=== PATIENT | male | born 1980 | race Caucasian/White ===

== ENCOUNTER 2023-03-20 10:02 | Emergency (ER) | payer OTHER, SELFPAY ==
[2023-03-20 10:05] VITALS: BP 131/89; PULSE 1; RESP 20; TEMP 37.2; O2SAT 9; BMI 30.6
--- NOTE | 2023-03-20 10:58 | CRLHL7_ITS ---
For Patients: As a result of the Century Cures Act, medical imaging exams and procedure reports are released immediately into your electronic medical record. You may view this report before your referring provider. If you have questions, please contact your health care provider. INDICATION: FEVER, COUGH TECHNIQUE: Chest 2 views. COMPARISON: April 05, 2019 FINDINGS: Cardiovascular and mediastinum: Heart size and vasculature are normal in caliber and appearance. Lungs and pleural spaces: Consolidation at the left mid to lower lung field compatible pneumonia. No sign of pleural effusion. No pneumothorax. Bones and soft tissues: No significant findings. IMPRESSION: Consolidation at the left mid to lower lung field compatible pneumonia. Recommend follow-up radiographs in 4-6 weeks to document resolution. Dictated by Clint Zelaya MD @ 03/20/2023 11:23:08 AM (Electronically Signed)
--- NOTE | 2023-03-20 11:06 | ED.GENADULT ---
HPI - General Adult General Date Seen: 03/20/23 Chief complaint: Shortness of Breath/Dyspnea Stated complaint: cough,shortness of breath Time Seen by Provider: 03/20/23 10:37 History of Present Illness HPI narrative: This is a pleasant 42-year-old generally healthy male who presents to the ER today with his for evaluation of cough, fever and chills, body aches, and shortness of breath. He is generally healthy. 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 He does not smoke. No long-term medical conditions. No history of asthma. He did have pneumonia once when he was a child. He has been sick for 3 days. Symptoms began on Monday with body aches, fatigue, cough, nasal congestion, sore throat. Symptoms were worse following day on Monday with high fever, ongoing cough. He vomited once (nonbloody) on Monday. He has been fatigued. He has been achy. He has been feeling weak. He has been coughing. He has been struggling to keep up with hydration. No diarrhea. Symptoms persisted through Monday with fever, cough, fatigue, and mild shortness of breath. This morning he has more short of breath. He feels like there is a bear leading on his chest. He is coughing more. He is concerned he may have pneumonia. He is vaccinated against influenza and COVID. He got his booster is a couple weeks ago Related Data Previous Rx's Medication Instructions Recorded doxycycline hyclate 100 mg capsule 100 mg PO BID #10 caps 03/20/23 Allergies Allergy/AdvReac Type Severity Reaction Status Date / Time No Known Drug Allergies Allergy Verified 03/20/23 10:10 [facility] Medical History (Updated 03/20/23 @ 12:41 by Adam Hooks MD) Pneumonia ?J18.9 - Pneumonia, unspecified organism (ICD-10) GERD (gastroesophageal reflux disease) ?K21.9 - Gastro-esophageal reflux disease without esophagitis (ICD-10) Social History Smoking Status: Never smoker Do you use any of these nicotine containing products: None How often do you have a drink containing alcohol: never How often do you have six or more drinks on one occasion: Never AUDIT-C Alcohol total score: 0 Non-prescribed substance use: denies use Exam Narrative: Exam Narrative: Constitutional: Appears well-developed and well-nourished. Alert. Conversant but mildly tachypneic. Skin is pink and warm and well perfused. Non toxic. HENT: Head: Atraumatic. Nose: Nose normal. TMs normal. Mouth/Throat: Oral mucosa is clear and moist. no trismus. Pharynx minimally erythematous. Tonsils symmetric. No tonsillar enlargement, or exudate. Eyes: Conjunctivae normal. EOM normal. Pupils equal, round, and reactive to light. No scleral icterus. Neck: Normal range of motion. Neck supple. No tracheal deviation present. Cardiovascular: Tachycardia-around 100 or 110, regular rhythm. No gallop. No friction rub. No murmur heard. Symmetric radial artery pulses Pulmonary/Chest: Mildly increased work of breathing but no distress. Speaking full sentences l. No stridor. No respiratory distress. No wheezes. Bilateral coarse rales spread throughout the upper lung caro. No rhonchi . No tenderness. Abdominal: Soft. Bowel sounds normal. No distension. No mass. No tenderness. No rebound. No guarding. Musculoskeletal: RUE: Normal range of motion. No tenderness. No deformity LUE: Normal range of motion. No tenderness. No deformity RLE: Normal range of motion. No edema. No tenderness. No deformity LLE: Normal range of motion. No edema. No tenderness. No deformity Lymph: No cervical adenopathy. Neurological: Alert and oriented to person, place, and time. Normal strength. CN II-VII intact. No sensory deficit. GCS eye subscore is 4. GCS verbal subscore is 5. GCS motor subscore is 6. Normal coordination Skin: Skin is warm and dry. No rash noted. No pallor. Normal capillary refill. Psychiatric: Normal mood. Normal affect. Const: Vital Signs, click to edit/add: Vital Signs - 24 hr 03/20/23 10:05 03/20/23 12:00 03/20/23 13:00 Temperature 98.9 F Pulse Rate [Pulse Oximeter] 1 L 80 84 Respiratory Rate 20 18 20 Blood Pressure [Ri ght Upper Arm] 131/89 Pulse Oximetry 9 L 98 98 Oxygen Delivery Me thod Room Air Room Air Room Air 03/20/23 15:01 Temperature Pulse Rate [Pulse Oximeter] 88 Respiratory Rate 20 Blood Pressure [Ri ght Upper Arm] Pulse Oximetry 97 Oxygen Delivery Me thod Room Air Course Vital Signs Vital signs: Initial Vital Signs Respiratory Effort Normal, Short of Breath 03/20/23 10:03 Respiratory Depth Normal 03/20/23 10:03 Respiratory Pattern Normal 03/20/23 10:03 Vital Signs Temperature 98.9 F 03/20/23 10:05 Pulse Rate 1 L 03/20/23 10:05 Respiratory Rate 20 03/20/23 10:05 Blood Pressure 131/89 03/20/23 10:05 Pulse Oximetry 9 L 03/20/23 10:05 Oxygen Delivery Method Room Air 03/20/23 10:05 Temperature 98.9 F 03/20/23 10:05 Pulse Rate 88 03/20/23 15:01 Respiratory Rate 20 03/20/23 15:01 Blood Pressure 131/89 03/20/23 10:05 Pulse Oximetry 97 03/20/23 15:01 Oxygen Delivery Method Room Air 03/20/23 15:01 Medications Administered Medications: Discontinued Medications Generic Name Dose Route Start Last Admin Trade Name Freq PRN Reason Stop Dose Admin Acetaminophen 1,000 mg 03/20/23 12:07 03/20/23 12:11 Acetaminophen 500 Mg Tablet PO 03/20/23 12:08 1,000 mg ONCE ONE Administration Sodium Chloride 1,000 mls @ 1,000 mls/hr 03/20/23 11:15 03/20/23 12:54 0.9 % Sodium Chloride 1000 Ml IV 03/20/23 12:14 Infused .Q1H EVA Infusion Ceftriaxone Sodium 1 gm/ 100 mls @ 200 mls/hr 03/20/23 11:45 03/20/23 13:30 Sodium Chloride IVPB 03/20/23 11:46 Infused ONCE ONE Infusion Azithromycin 500 mg/ Sodium 255 mls @ 255 mls/hr 03/20/23 11:45 03/20/23 14:36 Chloride IVPB 03/20/23 11:46 Infused ONCE ONE Infusion Ondansetron HCl 4 mg 03/20/23 11:05 03/20/23 11:24 Ondansetron 2 Mg/Ml Inj IVP 03/20/23 11:06 4 mg ONCE ONE Administration Medical Decision Making MDM Narrative Medical decision making narrative: This patient presents for evaluation of cough, fever, shortness of breath, body aches, fatigue, and occasional bouts of emesis ongoing for the past 3 days.. This is consistent with an upper respiratory tract infection. Viral testing negative for influenza, RSV, and coronavirus.. There is no signs at this point of OM, RPA, epiglottitis, BUFFER INFLATED PAD, strep pharyngitis, sinusitis, meningitis, bacteremia, serious bacterial infection. With his shortness of breath this morning consider alternative causes. EKG is nonischemic. Troponin is negative. Patient did have scattered rales on his lung exam. Chest x-ray is obtained and does show evidence for a lingular and left lower lobe pneumonia. Started on IV antibiotics with Rocephin and Zithromax here in the ER. He did have 1 episode of vomiting here in the ER. After IV fluids his heart rate has come down from the 04/28 range to sore is normal. He passed ambulation trial here in the ER with oxygen sats in the high 90s. He is feeling better and is requesting discharge home. No signs of kidney failure, uncontrolled hyperglycemia, new onset diabetes. He did report some transient exertional hypoxia at home with sats down to 87 briefly. Here in the ER oxygen sats are normal. Ambulation trial revealed normal oxygen sats. Consider hospitalization for his pneumonia, however all, He is feeling much better and stronger firs discharge in outpatient management rather than hospitalization. Close followup with primary care physician is indicated. Return to ED for fever > 103, protracted vomiting, confusion, or other worsening. Lab Data Labs: Lab Results 03/20/23 03/20/23 Range/Units 11:17 Unknown WBC 7.09 (4.50-11.00) K/uL RBC 4.79 (4.30-5.90) m/uL Hgb 14.5 (13.5-17.5) gm/dL Hct 45.3 (37.0-53.0) % MCV 95 (80-100) fL MCH 30 (26-34) pg MCHC 32 (32-36) gm/dL RDW Coeff of Pratibha 12.1 (11.5-15.5) % Plt Count 213 (140-440) K/uL Neut % (Auto) 70.5 (42.0-72.0) % Lymph % (Auto) 17.8 L (20-44) % Rolette % (Auto) 10.7 (0.0-11.0) % Eos % (Auto) 0.6 (0.0-7.0) % Baso % (Auto) 0.3 (0.0-3.0) % Neut # (Auto) 5.00 (1.7-7.0) K/uL Lymph # (Auto) 1.30 (0.90-2.90) K/uL Rolette # (Auto) 0.80 (0.00-0.90) K/UL Eos # (Auto) 0.04 (0.00-0.50) K/uL Baso # (Auto) 0.02 (0.00-0.30) K/uL Abs Immat Gran (auto) 0.01 (0.00-0.30) K/uL Imm/Tot Granulo (auto) 0.1 % Sodium 142 (135-149) mmol/L Potassium 4.5 (3.6-5.1) mmol/L Chloride 104 (96-114) mmol/L Carbon Dioxide 26 (20-32) mmol/L Anion Gap 12 (7-15) mEq/L BUN 13 (5-24) mg/dL Creatinine 0.9 (0.5-1.5) mg/dL Estimated Creat Clear 108.15 Estimated GFR 108 ml/min Glucose 116 H (60-115) mg/dL Calcium 8.9 (8.4-10.6) mg/dL Troponin I < 0.01 L (0.01-0.04) ng/mL SARS-CoV-2 (PCR) Negative SARS-CoV-2 (Negative) Influenza Type A (PCR) Negative PCR FLU A (Negative) Influenza Type B (PCR) Negative PCR FLU B (Negative) RSV (PCR) Negative PCR RSV (Negative) Imaging Data Chest x-ray: Attestation: I have reviewed the pertinent imaging results. Radiologist's impression: IMPRESSION: Consolidation at the left mid to lower lung field compatible pneumonia. Recommend follow-up radiographs in 4-6 weeks to document resolution. ECG Data Attestation: I personally reviewed and interpreted this ECG as follows: Interpretation: Sinus tach. Rate 103. OK 154 QRS axis normal axis. No pathologic Q-waves. ST segment/T wave: No ST segment elevation or depression. QTc: 424 Discharge Plan Discharge Clinical Impression: Community acquired pneumonia Patient Disposition: Home, Self-Care Condition: Guarded Instructions: Community Acquired Pneumonia (DC) Additional Instructions: Please return to the ER right away if you have more trouble breathing, oxygen level below 90% which lasts more than 5 minutes, weakness, high fever, uncontrolled vomiting or dehydration, or if you have any concerns. You can return to work after your symptoms are improving and you have been free of fever for more than 24 hours. Prescriptions: New doxycycline hyclate 100 mg capsule 100 mg PO BID Qty: 10 0RF Follow Up/Referrals: Nicole Hodges MD [Primary Care Provider] - Stand Alone Forms: [employer] Info Instructions
[2023-03-20] MEDS: 0.9 % SODIUM CHLORIDE 1000 ml 1,000 ML IV (11:23)
[2023-03-20] MEDS: ONDANSETRON 2 MG/ML inj 4 MG IVP (11:24)
[2023-03-20 11:38] LABS: Basophils Absolute Auto 0.02 K/uL (0.00-0.30); Basophils Percent Auto 0.3 % (0.0-3.0); Eosinophils Absolute Auto 0.04 K/uL (0.00-0.50); Eosinophils Percent Auto 0.6 % (0.0-7.0); Hematocrit 45.3 % (37.0-53.0); Hemoglobin* 14.5 gm/dL (13.5-17.5); Immature Granulocytes Abs Auto 0.01 K/uL (0.00-0.30); Immature Granulocytes Pct Auto 0.1 %; Lymphocytes Percent Auto 17.8 % (20-44); Mean Corpuscular HGB Conc 32 gm/dL (32-36); Mean Corpuscular Hemoglobin 30 pg (26-34); Mean Corpuscular Volume 95 fL (80-100); Monocytes Percent Auto 10.7 % (0.0-11.0); Neutrophils Percent Auto 70.5 % (42.0-72.0); Platelet Count* 213 K/uL (140-440); RDW Coefficient of Variation % 12.1 % (11.5-15.5); Red Blood Count 4.79 m/uL (4.30-5.90); White Blood Count* 7.09 K/uL (4.50-11.00)
[2023-03-20 11:40] LABS: Slide Review Reflex No
[2023-03-20 11:50] LABS: Chloride* 104 mmol/L (96-114); Potassium* 4.5 mmol/L (3.6-5.1); Sodium* 142 mmol/L (135-149)
[2023-03-20 11:52] LABS: Creatinine* 0.9 mg/dL (0.5-1.5); Est. Creatinine Clearance* 108.15; Estimated Glomerular Filt Rate 108 ml/min
[2023-03-20 11:53] LABS: Anion Gap 12 mEq/L (7-15); Blood Urea Nitrogen* 13 mg/dL (5-24); Calcium* 8.9 mg/dL (8.4-10.6); Carbon Dioxide* 26 mmol/L (20-32); Glucose* 116 mg/dL (60-115)
[2023-03-20 12:00] VITALS: PULSE 80; RESP 18; O2SAT 98
[2023-03-20] MEDS: cefTRIAXone 1 GM in 0.9 % SODIUM CHLORIDE Mini-bag 100 ML IVPB (12:01)
[2023-03-20] MEDS: ACETAMINOPHEN 500 MG TABLET 1000 MG PO (12:11)
[2023-03-20 12:14] LABS: Troponin I* < 0.01 ng/mL (0.01-0.04)
[2023-03-20 12:17] LABS: PCR FLU A Negative PCR FLU A (Negative); PCR FLU B Negative PCR FLU B (Negative); PCR RSV Negative PCR RSV (Negative)
[2023-03-20 12:30] LABS: SARS PCR* Negative SARS-CoV-2 (Negative)
[2023-03-20 13:00] VITALS: PULSE 84; RESP 20; O2SAT 98
[2023-03-20] MEDS: AZITHROMYCIN 500 MG in 0.9 % SODIUM CHLORIDE 250 ml 250 ML 255 MG IVPB (13:28)
--- NOTE | 2023-03-20 14:38 | ED.NURSE ---
patient ambulated in the hallway and pulse ox 98% on room air.
[2023-03-20 15:01] VITALS: PULSE 88; RESP 20; O2SAT 97
== END 2023-03-20 14:59 | disposition home or self-care (01) ==
PROVIDERS: Emergency Provider Emergency Medicine; PCP Family Medicine
DX: J18.9 Pneumonia, unspecified organism (principal)
CPT/HCPCS: 36415; 71046; 80048; 84484; 85025; 87631; 93005; 96365; 96366; 96375; 99284; 99285; A9270; J0456; J0696; J2405; J7030; J7050

== ENCOUNTER 2023-12-29 12:08 | Outpatient (CLI) | payer OTHER, SELFPAY ==
--- OUTSIDE RECORDS SUMMARY | 2023-12-29 12:12 | XMS_ITS | Clinical Summary ---
Author Organization [facility] Address [address] [place] [address] Care Team Providers Care Inside Sales Lead Name Role Phone Elsewhere, Pcp Primary Care Provider Unavailabl e Source Comments Patient records contain information from all sites at [facility]. For routine questions regarding patient records, call [phone] during business hours, M-F 8:00 AM - 5:00 PM Central Time. Record requests for emergency care only can be directed to [phone] at any time.[facility] Allergies No known active allergies Medications Medication Sig Dispensed Refills Start Date End Date Status cinnamon bark 500 mg capsule Take 1 capsule by mouth 2 (two) times a day. 02/08/2017 Active multivitamin tablet Take 1 tablet by mouth daily. 02/08/2017 Active vitamins A,C,H-kfja-derpmq (PRESERVISION AREDS) 7,160 Units-113 mg-100 Units per tablet Take 1 tablet by mouth daily. 02/08/2017 Active calcium carbonate (OS-JORGE LUIS) 1,250 mg (500 mg calcium) tablet Take 1 tablet by mouth 2 (two) times a day. 02/08/2017 Active docosahexanoic acid/epa (FISH OIL ORAL) Take 1 capsule by mouth daily. 02/03/2015 Active Encounters Date Type Department Care Team Description 11/01/2023 Clinical Communication Section of Preventive, Transportation and Occupational Medicine in [place], [place] [address] [place] [address] Adam Montenegro M.D. from Last 3 Months Immunizations Name Administration Dates Next Due H1N1 All Forms 05/03/2009 HepA, Unspecified 03/27/2005,05/28/2004,04/30/19 05 HepB, Unspecified 03/24/2005,05/25/2004,04/24/19 05 Influenza Split 02/22/2015, 2,03/13/2010,2008,02/23/2008,03/25/2007,03/31/2006,1 05/28/2004,04/30/2004 Influenza, Unspecified 02/05/2021 MMR 04/30/2004,12/24/1979 MPSV4 10/02/2010,04/30/2004 OPV 11/23/1983, 1,04/24/1979,1978,1978 PPD Test 08/30/2017 SARS-COV-2 (COVID-19) - PFIZ ER (Discontinued)(12 years or older) 02/05/2021,05/08/2020,04/14/2020 Td Preservative Free (TENIVA C, DECAVAC) 04/30/2004 Tdap 03/13/2010 TyVi (inj) 10/02/2010 influenza LAIV (Nasal) (2 ye ars through 49 years) 02/17/2014,01/18/2011 influenza trivalent vaccine (6 months and older)(PF) 02/04/2013 Social History Tobacco Use Types Packs/Day Years Used Date Smoking Tobacco: Former Smokeless Tobacco: Former Chew Quit: 04/24/2009 Humiliation, Afraid, Rape, and Kick questionnair e Answer Date Recorded Within the last year, have y ou been afraid of your partner or ex-partner? No 01/28/2022 Within the last year, have y ou been humiliated or emotionally abused in other ways by your partner or ex-partner? No Within the last year, have y ou been kicked, hit, slapped, or otherwise physically hurt by your partner or ex-partner? No 01/28/2022 Within the last year, have y ou been raped or forced to have any kind of sexual activity by your partner or ex-partner? No 01/28/2022 Social Connection and Isolat ion Panel [NHANES] Answer Date Recorded In a typical week, how many times do you talk on the phone with family, friends, or neighbors? More than three times a week 01/28/2022 How often do you get togethe r with friends or relatives? Once a week 01/28/2022 How often do you attend chur ch or spiritism services? More than 4 times per year 01/28/2022 Do you belong to any clubs o r organizations such as latter-day groups, unions, fraternal or athletic groups, or school groups? Yes 01/28/2022 How often do you attend meet ings of the clubs or organizations you belong to? More than 4 times per year 01/28/2022 Are you , , di vorced, , never , or living with a partner? 01/28/2022 AUDIT-C Answer Date Recorded Q1: How often do you have a drink containing alc ohol? 2-4 times a month 01/28/2022 Q2: How many drinks containi ng alcohol do you have on a typical day when you are drinking? 3 or 4 01/28/2022 Q3: How often do you have si x or more drinks on one occasion? Less than monthly 01/28/2022 Overall Financial Resource Strain (CARDIA) Answe r Date Recorded How hard is it for you to pa y for the very basics like food, housing, medical care, and heating? Not hard at all 01/28/2022 [facility] - Occupational Stress Questionnaire Answer Date Recorded Do you feel stress - tense, restless, nervous, or anxious, or unable to sleep at night because your mind is troubled all the time - these days? Not at all 01/28/2022 Exercise Vital Sign Answer Date Recorde d On average, how many days pe r week do you engage in moderate to strenuous exercise (like a brisk walk)? 3 days 01/28/2022 On average, how many minutes do you engage in exercise at this level? 30 min 01/28/2022 Hunger Vital Sign Answer Date Recorded Within the past 12 months, y ou worried that your food would run out before you got the money to buy more. Never true 01/29/20 22 Within the past 12 months, t he food you bought just didn't last and you didn't have money to get more. Never true 01/28/2022 PRAPARE - Transportation Answer Date Re corded In the past 12 months, has l ack of transportation kept you from medical appointments or from getting medications? No 10/2021 In the past 12 months, has l ack of transportation kept you from meetings, work, or from getting things needed for daily living? No 01/28/2022 Housing Stability Vital Sign Answer Manny e Recorded In the last 12 months, was t here a time when you were not able to pay the mortgage or rent on time? No 01/28/2022 In the last 12 months, how many places have you lived? 1 01/28/2022 In the last 12 months, was t here a time when you did not have a steady place to sleep or slept in a custodial (including now)? No 01/28/2022 Nutrition Answer Date Recorded Nutrition: EVOO Fat Source No 01/28 On average, how many serving s of fruits and vegetables do you eat per day (serving size is equal to 1 cup or approximately the size of a tennis ball)? 2-3 01/28/2022 Dental Answer Date Recorded Dental: Regular Dentist Yes 01/29/20 Employment Answer Date Recorded Employment status Employed and actively working without restrictions 01/28/2022 Education Answer Date Recorded What is the highest level of school you have completed or the highest degree you have received? Master's degree (e.g., MA, MS, Adrien, MEd, PATIENT CARE COORDINATOR, [place]) 01/28/2022 Sex and Gender Information Value Date Recorded Sex Assigned at Male 01/18/2021 11:01 AM CDT Gender Identity Not on file Sexual Orientation Not on file Last Filed Vital Signs Vital Sign Reading Time Taken Comments Blood Pressure 121/84 02/02/2023 2:08 PM CDT Pulse 80 02/02/2023 2:08 PM CDT regular Temperature - - Respiratory Rate 12 02/15/2016 9:55 AM CDT Vital sign result from Clinical Notes. Oxygen Saturation - - Inhaled Oxygen Concentration - - Weight 92 kg (202 lb 13.2 oz) 02/02/2023 2:08 PM CDT Height 176.4 cm (5' 9.45) 02/02/2023 2 :08 PM CDT Body Mass Index 29.57 02/02/2023 2:08 PM CDT Plan of Treatment Upcoming Encounters Date Type Department Care Team (Late st Contact Info) Description 02/01/2024 7:20 AM CDT Ancillary Procedure Department of Cardiovascular Medicine in [place], [place] [address] [place] [phone] Adam Montenegro M.D. [address] [place] [phone] 02/01/2024 8:00 AM CDT Clinical Support Section of Preventive, Transportation and Occupational Medicine in [place], [place] [address] [place] [phone] 02/01/2024 8:30 AM CDT Comprehensive Visit Section of Preventive, Transportation and Occupational Medicine in [place], [place] [address] [place] [phone] Pasha Helton M.D., M.P.H. [address] [place] [phone] 02/01/2024 9:30 AM CDT Clinical Support Section of Preventive, Transportation and Occupational Medicine in [place], [place] [address] [place] [phone] Health Maintenance Due Date Last Done Comments CT Colonography 1978 Cologuard 1978 Colonoscopy 1978 Colorectal Cancer Screening 1978 FIT 1978 HIV Screening 1978 Hepatitis C Screening 1978 Lipid (Cholesterol) Screening 1978 Depression Screening (Annual PHQ-2) 04/24/2023 Influenza Vaccine (#1) 2024 3, 02/05/2021, 02/04/2020, Additional history exists Fasting Glucose for Diabetes Screening 07/19/2025 07/19/2022 DTaP,Tdap,and Td Vaccines (8 - Td or Tdap) 07/16/2031 07/15/2021, 03/13/2010, 04/30/2004, Additional history exists Hepatitis A Vaccines Completed 03/27/2005, 03/27/2005, 05/28/2004, Additional history exists Hepatitis B Vaccines Completed 03/27/2005, 03/24/2005, 05/28/2004, Additional history exists COVID-19 Vaccine Completed 03/08/2023, , 05/08/2020, Additional history exists HPV Vaccines Aged Out No longer eligi ble based on patient's age to complete this topic Pneumococcal vaccine (0-64 years) Aged Out No longer eligible based on patient's age to complete this topic Care Teams Inside Sales Lead Relationship Specialty Start Date End Date Elsewhere, Pcp PCP - General Family Medicine 08/30/17
--- OUTSIDE RECORDS SUMMARY | 2023-12-29 12:13 | XMS_ITS | Clinical Summary ---
Author Organization [facility] Address [place], [place] [address] Care Team Providers Care Rn Heart Name Role Phone Enrique Campos MD Primary Care Provider [phone] Allergies No known active allergies Medications No known medications Family History Relation Name Status Comments Father Alive Mother Alive Social History Tobacco Use Types Packs/Day Years Used Date Smoking Tobacco: Former Cigarettes Smokeless Tobacco: Never Tobacco Cessation:Counseling Given: Not Answered Alcohol Use Standard Drinks/Week Comments Yes 0 (1 standard drink = 0.6 oz pur e alcohol) PHQ-2 Answer Date Recorded PHQ-2 TOTAL SCORE 0 07/19/2022 Social Connections Answer Date Recorded Frequency of Communication with Friends and Fami ly Not on file 07/19/2022 Sex and Gender Information Value Date Recorded Sex Assigned at Not on file Gender Identity Not on file Sexual Orientation Not on file Obstetrics History Last Filed Vital Signs Vital Sign Reading Time Taken Comments Blood Pressure 152/108 07/19/2022 9:06 AM CDT Pulse 104 07/19/2022 9:03 AM CDT Temperature 37.7 ??C (99.8 ??F) 07/19/2022 9:03 AM CD T Respiratory Rate 20 07/19/2022 9:03 AM CDT Oxygen Saturation 97% 07/19/2022 9:03 AM CDT Inhaled Oxygen Concentration - - Weight 91.9 kg (202 lb 8 oz) 07/19/2022 9:03 AM CDT Height 177.3 cm (5' 9.8) 07/19/2022 9:03 AM CDT Body Mass Index 29.22 07/19/2022 9:03 AM CDT Plan of Treatment Health Maintenance Due Date Last Done Comments Tdap 1989 HIV for age 15-65 1993 Hepatitis C screening for ag e 18-79 1996 Tetanus booster 1998 COVID-19 vaccine series ( season) 2022 02/05/2021, 05/08/2020, 04/14/2020 BMI (ht and wt on same day) for age 18+ 07/20/2023 07/19/2022 Depression screening for age 12+ 07/20/2023 07/19/2022 Colonoscopy through age 75 09/23/2023 Lipids for age 45-75 09/23/2023 Influenza for age 9-49 12/24/2023 Pneumococcal series for age 6-64 Aged Out No longer eligible b ased on patient's age to complete this topic Care Teams Rn Heart Relationship Specialty Start Date End Date Enrique Campos MD [address] [place] [address] PCP - General Family Practice 04/20/15
--- OUTSIDE RECORDS SUMMARY | 2023-12-29 12:13 | XMS_ITS | Referral Summary ---
Author Organization [facility] Address [address] [place] [address] Care Team Providers Care Monument Installer Name Role Phone Elsewhere, Pcp Primary Care Provider Unavailabl e Source Comments Patient records contain information from all sites at [facility]. For routine questions regarding patient records, call [phone] during business hours, M-F 8:00 AM - 5:00 PM Central Time. Record requests for emergency care only can be directed to [phone] at any time.[facility] Encounters Date Type Department Care Team Description 11/01/2023 Clinical Communication Section of Preventive, Transportation and Occupational Medicine in [place], [place] [address] [place] [address] Adam Montenegro M.D. from Last 3 Months Allergies No known active allergies Medications Medication Sig Dispensed Refills Start Date End Date Status cinnamon bark 500 mg capsule Take 1 capsule by mouth 2 (two) times a day. 02/08/2017 Active multivitamin tablet Take 1 tablet by mouth daily. 02/08/2017 Active vitamins A,C,M-msxi-hguyiu (PRESERVISION AREDS) 7,160 Units-113 mg-100 Units per tablet Take 1 tablet by mouth daily. 02/08/2017 Active calcium carbonate (OS-JORGE LUIS) 1,250 mg (500 mg calcium) tablet Take 1 tablet by mouth 2 (two) times a day. 02/08/2017 Active docosahexanoic acid/epa (FISH OIL ORAL) Take 1 capsule by mouth daily. 02/03/2015 Active Immunizations Name Administration Dates Next Due H1N1 [...] often do you attend chur ch or rastafarian services? More than 4 times per year 01/28/2022 Do you belong to any clubs o r organizations such as orthodox groups, unions, fraternal or athletic groups, or [...] and heating? Not hard at all 01/28/2022 [facility] of Occupat ional Health - Occupational Stress [...] place to sleep or slept in a penitentiary (including now)? No 01/28/2022 Nutrition Answer Date [...] Master's degree (e.g., MA, MS, Adrien, MEd, HEAD GOLF PROFESSIONAL, [place]) 01/28/2022 Sex and Gender Information Value [...] Ancillary Procedure Department of Cardiovascular Medicine in [place], [place] [address] [place] [address] Adam Montenegro M.D. [address] [place] [address] 02/01/2024 8:00 AM CDT Clinical Support Section of Preventive, Transportation and Occupational Medicine in [place], [place] [address] [place] [address] 02/01/2024 8:30 AM CDT Comprehensive Visit Section of Preventive, Transportation and Occupational Medicine in [place], [place] [address] [place] [address] Pasha Helton M.D., M.P.H. [address] [place] [address] 02/01/2024 9:30 AM CDT Clinical Support Section of Preventive, Transportation and Occupational Medicine in [place], [place] [address] [place] [address] Care Teams Monument Installer Relationship Specialty Start Date End Date Elsewhere, Pcp PCP - General Family Medicine 08/30/17
--- OUTSIDE RECORDS SUMMARY | 2023-12-29 12:13 | XMS_ITS ---
Author Organization [facility] Address [address] [place] [address] Care Team Providers Care Kerfer Machine Operator Name Role Phone Unavailable Unavailable Unavailable Surgery Details Not on file Complications Check Surgery Details section. Procedure Estimated Blood Loss Check Surgery Details section. Procedure Findings Check Surgery Details section. Procedure Specimens Taken Check Surgery Details section.
--- OUTSIDE RECORDS SUMMARY | 2023-12-29 12:13 | XMS_ITS | Continuity of Care Document ---
Author Name [facility] Organization [facility] Care Team Providers Care Hyster Machine Operator Name Role Phone [facility] Unavailable Unavailable Problems Combined list of problems from Department of Defense and Veterans Affairs facilities. It does not include entries that were removed or entered in error. Problem Status Onset Date Problem Type Date of Resolution Comments Source visit for: examination of subpopulation Active Condition DoD visit for: services physical demobilization Active Condition DoD otitis media acute serous left ear Inactive Condition DoD lip biting Active Condition DoD sebaceous cyst Inactive Condition DoD new patient ophthalmological exam Inactive Condition DoD pharyngitis acute Inactive Condition DoD visit for: services physical Active Condition DoD visit for: screening exam cardiovascular disorders Inactive Condition DoD candidiasis Active Condition DoD urinary tract infection Inactive Condition DoD Need For Vaccination Against Influenza Active Condition DoD visit for: ears, nose, and throat exam Inactive Condition DoD visit for: services flight physical Active Condition class 1 RO DoD visit for: routine eye exam Inactive Condition DoD Allergies, Adverse Reactions, Alerts Combined list of allergies from Department of Defense and Veterans Affairs facilities. It does not include entries that were removed or entered in error. Substance Category Reaction Severity Reaction type Status Date Reported Comments Source No Known Allergies Drug allergy (disorder) active 05/09/2007 [facility] [place] Immunizations Combined list of available immunizations from the Department of Defense and Veterans Affairs facilities. Immunization Series Date Given Administered By Site Reaction Lot Number CVX Code Drug Slot Tag Inserter Status Comments Source influenza, injectable, quadrivalent, preservative free 2020 MIROSLAVA BROOKE () Not Given influenza , injectabl e, quadrival ent, preservat idalia free DoD COVID-19, mRNA, LNP-S, PF, 30 mcg/0.3 mL dose 2020 MIROSLAVA BROOKE [employer] (PFR) Not Given COVID-19, mRNA, LNP-S, PF, 30 mcg/0.3 mL dose DoD influenza, injectable, quadrivalent 2019 MIKA, () Not Given influenza , injectabl e, quadrival ent DoD influenza virus vaccine, live, attenuated, for intranasal use 1 2011 [id number] GLIIF, [employer] (MED) complet ed influenza virus vaccine, live, attenuate d, for intranasa l use DoD influenza virus vaccine, live, attenuated, for intranasal use 1 2010 [id number] Sanofi Pasteur ([facility]) complet ed influenza virus vaccine, live, attenuate d, for intranasa l use DoD meningococcal polysaccharid e vaccine (MPSV4) 1 2010 [id number] 32 Sanofi Pasteur ([facility]) complet ed meningoco ccal polysacch aride vaccine (MPSV4) DoD typhoid Vi capsular polysaccharid e vaccine 1 2010 [id number] Sanofi Pasteur ([facility]) complet ed typhoid Vi capsular polysacch aride vaccine DoD influenza virus vaccine, split virus (incl. purified surface antigen)-reti red CODE 1 2009 [id number] 15 [employer] ([facility]) complet ed influenza virus vaccine, split virus (incl. purified surface antigen)- retired CODE DoD tetanus toxoid, reduced diphtheria toxoid, and acellular pertu is vaccine, adsorbed 1 2009 [id number] 115 [employer] (AVB) complet ed tetanus toxoid, reduced diphtheri a toxoid, and acellular pertussis vaccine, adsorbed DoD Novel influenza-H1N 1-09, injectable 1 2009 [id number] 127 Novartis [employer] l Saran. (NOV) complet ed Novel influenza -Q4M2-77, injectabl e DoD influenza virus vaccine, split virus (incl. purified surface antigen)-reti red CODE 1 2008 [id number] 15 [employer] ([facility]) complet ed influenza virus vaccine, split virus (incl. purified surface antigen)- retired CODE DoD influenza virus vaccine, split virus (incl. purified surface antigen)-reti red CODE 1 2007 [id number] 15 [employer] ([facility]) complet ed influenza virus vaccine, split virus (incl. purified surface antigen)- retired CODE DoD influenza virus vaccine, split virus (incl. purified surface antigen)-reti red CODE 1 2006 [id number] 15 [employer] ([facility]) complet ed influenza virus vaccine, split virus (incl. purified surface antigen)- retired CODE DoD influenza virus vaccine, unspecified formulation 1 2005 UNK 88 Unknown (UNK) comple t ed influenza virus vaccine, unspecifi ed formulati on DoD influenza virus vaccine, split virus (incl. purified surface antigen)-reti red CODE 1 2004 [id number] Sanofi Pasteur ([facility]) complet ed influenza virus vaccine, split virus (incl. purified surface antigen)- retired CODE DoD hepatitis A and hepatitis B vaccine 3 2004 [id number] [facility] ([facility]) complet ed hepatitis A and hepatitis B vaccine DoD hepatitis A and hepatitis B vaccine 2 2004 UNK 104 Unknown (UNK) comple t ed hepatitis A and hepatitis B vaccine DoD measles, mumps and rubella virus vaccine 1 2004 UNK 03 Unknown (UNK) comple t ed measles, mumps and rubella virus vaccine DoD tetanus and diphtheria toxoids, adsorbed, preservative free, for adult use (2 Lf of tetanus toxoid and 2 Lf of diphtheria toxoid) 1 2004 UNK 09 Unknown (UNK) comple t ed tetanus and diphtheri a toxoids, adsorbed, preservat idalia free, for adult use (2 Lf of tetanus toxoid and 2 Lf of diphtheri a toxoid) DoD poliovirus vaccine, inactivated 1 2004 UNK 10 Unknown (UNK) comple t ed polioviru s vaccine, inactivat ed DoD influenza virus vaccine, split virus (incl. purified surface antigen)-reti red CODE 1 2004 UNK 15 Unknown (UNK) comple t ed influenza virus vaccine, split virus (incl. purified surface antigen)- retired CODE DoD meningococcal polysaccharid e vaccine (MPSV4) 1 2004 UNK 32 Unknown (UNK) comple t ed meningoco ccal polysacch aride vaccine (MPSV4) DoD hepatitis A and hepatitis B vaccine 1 2004 UNK 104 Unknown (UNK) comple t ed hepatitis A and hepatitis B vaccine DoD Encounters Combined list of: 1) Encounters from Department of Veterans Affairs facilities going back up to thelast 18 months. 2) Encounters from the Department of Defense facilities going back up to 280 months. Location Location Details Encounter Type Encounter Number Reason For Visit Attending Provider ADM Date DC Date Status Disposition Source [facility] Mcdonald([facility]) OUTPATIENT [id number] ERNESTO JOY 08/25 Released w/o Limitations [facility] Mcdonald(Opto metry [facility]) [facility]Y Mcdonald(Physic al Exam Clinic) OUTPATIENT [id number] GONZALEZ KEELEY POLLACK Emili 08/25 Released w/o Limitations [facility](Phys ical Exam Clinic) [facility]cdonald([facility]) OUTPATIENT [id number] NICOLE MCCRAY 08/25 Released w/o Limitations TOMY Mcdonald(Hear ing Conserv e) [facility]) OUTPATIENT [id number] ro/rw fdme WILMA MCKEE 08/25 Released w/o Limitations [facility]OM[facility] Mcdonald(Prim rox[facility]n [facility]) [facility]cdonald([facility]) OUTPATIENT [id number] earplug fitting ARTHUR BURTON 08/26 Released w/o Limitations TOMY Mcdonald(Hear ing Conserv e) TOMY Mcdonald(Immuni zation Clinic) OUTPATIENT [id number] flu shot GAGANDEEP CLARK A 03/30 Released w/o Limitations TOMY Mcdonald(Immu nizatio n Clinic) [facility]onald([facility]) OUTPATIENT [id number] painful urinati on STEPHEN QUIÑONES A 08/08 Released w/o Limitations [facility]cdonald([facility]) [facility] Mcdonald(Physic al Exam Clinic) OUTPATIENT [id number] CLS2AB CANDIDA WALTERS 09/05 Released w/o Limitations TOMY Mcdonald(Phys ical Exam Clinic) [employer] [facility] OUTPATIENT [id number] Sore Throat FLORECITA BERTRAND 08/07 Released w/o Limitations [facility]) [facility] ) OUTPATIENT [id number] JARRELL GALEANO Quinn 09/04 Released w/o Limitations [facility]) [facility]) OUTPATIENT [id number] Notes Entered by: ANNMARIE ESPINOZA 04 Oct 2011 1458 ------- ------- ------- ------- -- SKIN IRRITAT FLORECITA ALMARAZ 10/03 Released w/o Limitations [facility]) [facility]) OUTPATIENT [id number] Notes Entered by: GEMMA COREAS 03 Dec 2011 0923 ------- ------- ------- ------- -- Ear Pressur e Jun 05 NICOLE CARPENTER 12/02 Released w/o Limitations [facility]) [facility]) OUTPATIENT [id number] Notes Entered by: GEMMA COREAS 05 Dec 2011 1822 ------- ------- ------- ------- -- Lip Sore November 02 NICOLE CARPENTER 12/04 Released w/o Limitations [facility]) Chayo PAULINO [place], JOSE LUIS([place] MRP Optometry ) OUTPATIENT [id number] [facility] HOLLI Hummel 12/29 Released w/o Limitations [place]UL[place] Immunizat ions) OUTPATIENT [id number] Patient here for TERRIE RODRIGUEZ 12/29 Released w/o Limitations [facility] [place] Immun[place] ations) [facility] Mai [place], JOSE LUIS([place] MRP Pre & Post Deploymen t) OUTPATIENT [id number] Notes Entered by: SUNSHINE VALADEZ 02 Jan 2012 1236 ------- ------- ------- ------- -- ELVA DESHPANDE DAPHNE KIDD 01/01 Released w/o Limitations JOSE LUIS Tamez([place] MR[place] Pre & Post Deploym ent) JOSE LUIS Tamez([facility] Hearing Conservat ion) OUTPATIENT [id number] Notes Entered by: DEONTE FORD 05 Jan 2012 1157 ------- ------- ------- ------- -- ELVA DESHPANDE ALEXYS FREEDMAN 01/04 Released w/o Limitations Chayo [place] JOSE LUIS([facility] Hearing Conserv ation) Procedures Combined list of: 1) Procedures from Department of Veterans Affairs facilities [facility], not all VA non-surgical procedures are included; 2) All procedures from the Department of Defense facilities. Procedure Procedure Type Code Date Perfomer Comments Sour e DETERMINATION OF REFRACTIVE STATE 5 [facility] ELECTROCARDIOGRAM, ROUTINE ECG WITH AT LEAST 12 LEADS; WITH INTERPRETATION AND REPORT 5 DoD PURE TONE AUDIOMETRY (THRESHOLD); AIR ONLY 5 DoD ELECTROCARDIOGRAM, ROUTINE ECG WITH AT LEAST 12 LEADS; INTERPRETATION AND REPORT ONLY 3 [facility] ELECTROCARDIOGRAM, ROUTINE ECG WITH AT LEAST 12 LEADS; TRACING ONLY, WITHOUT INTERPRETATION AND REPORT 3 [facility] VIS FUNCT SCREEN,AUTOMAT/SEMI-A UTOMAT BILAT QUANT DETERM VISUAL ACUITY,OCULAR ALIGN,COLOR VISION,PSEUDOISOCHROM AT PLATES,& FIELD VIS (MAY INC ALL/SOME SCRN DETERM FOR CONTRAST SENSITIV,VIS UND GLARE) 3 [facility] OPHTHALMOLOGICAL SERVICES: MEDICAL EXAMINATION AND EVALUATION WITH INITIATION OF DIAGNOSTIC AND TREATMENT PROGRAM; COMPREHENSIVE, NEW PATIENT, 1 OR MORE VISITS 2 DoD PURE TONE AUDIOMETRY (THRESHOLD); AIR ONLY 2 [facility] SCREENING TEST OF VISUAL ACUITY, QUANTITATIVE, BILATERAL 2 [facility] INFLUENZA VIRUS VACCINE, TRIVALENT, LIVE (LAIV3), FOR INTRANASAL USE 1 [facility] SCREENING TEST OF VISUAL ACUITY, QUANTITATIVE, BILATERAL 1 [facility] ELECTROCARDIOGRAM, ROUTINE ECG WITH AT LEAST 12 LEADS; TRACING ONLY, WITHOUT INTERPRETATION AND REPORT 7 DoD INFLUENZA VIRUS VACCINE, TRIVALENT (IIV3), SPLIT VIRUS, 0.5 ML DOSAGE, FOR INTRAMUSCULAR USE 6 [facility] EAR MOLD/INSERT, NOT DISPOSABLE, ANY TYPE 6 [facility] VIS FUNCT SCREEN,AUTOMAT/SEMI-A UTOMAT BILAT QUANT DETERM VISUAL ACUITY,OCULAR ALIGN,COLOR VISION,PSEUDOISOCHROM AT PLATES,& FIELD VIS (MAY INC ALL/SOME SCRN DETERM FOR CONTRAST SENSITIV,VIS UND GLARE) 6 [facility] AUDIOMETRIC TESTING OF GROUPS 6 [facility] DETERMINATION OF REFRACTIVE STATE 6 [facility] Threshold Audiogram (Pure Tone) Threshold Audiogram (Pure Tone) 16711 2 ALEXYS FREEDMAN [facility] Screening Test Of Visual Acuity, Quantitative, Bilateral Screening Test Of Visual Acuity, Quantitative, Bilateral 07755 2 HOLLI BYRNE [facility] Ophthalmological New Patient Start Comprehensive Care Ophthalmological New Patient Start Comprehensive Care [id number] 2 JARRELL GALEANO [facility] ECG Performance of Tracing Only ECG Performance of Tracing Only 68053 7 CANDIDA WALTERS [facility] Visual Function Screening Visual Function Screening 77973 7 CANDIDA WALTERS [facility] Influenza Split Virus Vaccine 0.5mL Dosage Intramuscular 6 YOHUBERT ELAINE [facility] Immunization Administration By Injection, One Vaccine Immunization Administration By Injection, One Vaccine 12088 6 YOHN, ELAINE [facility] Audiogram (Screening) Audiogram (Screening) 41657 6 NICOLE MCCRAY [facility] Audiometry Group Testing Audiometry Group Testing 29493 6 NICOLE MCCRAY [facility] Ear mold/insert, not disposable, any type 6 ARTHUR BURTON [facility] Audiogram (Screening) Audiogram (Screening) 38485 6 WILMA MCKEE [facility] Visual Function Screening Visual Function Screening 81366 6 WILMA MCKEE Determination Of Refractive State Determination Of Refractive State 66627 6 ERNESTO JOY [facility] Social History Combined list of available smoking, tobacco, and other social history from Department of Defense and Veterans Affairs facilities. Social History Type Response Date Comment [facility] e This section is an empty social history section. DoD
--- OUTSIDE RECORDS SUMMARY | 2023-12-29 12:13 | XMS_ITS | Encounter Summary ---
Author Organization [facility] Address [address] [place] [address] Care Team Providers Care Tube Worker Name Role Phone Elsewhere, Pcp Primary Care Provider Unavailabl e Encounter Details Date Type Department Care Team (Latest Contact Info) Description 11/01/2023 Clinical Communication Section of Preventive, Transportation and Occupational Medicine in [place], [place] [address] [place] [address] Adam Montenegro M.D. [address] [place] [address] Social History Tobacco Use Types Packs/Day Years [...] 01/28/2022 How often do you attend chur or alevism services? More than 4 times per year 01/28/2022 Do you belong to any clubs o r organizations such as moravian groups, unions, fraternal or athletic groups, or [...] and heating? Not hard at all 01/28/2022 [facility] [place] of Occupat ional Health - Occupational Stress [...] place to sleep or slept in a fdc (including now)? No 01/28/2022 Nutrition Answer Date [...] Master's degree (e.g., MA, MS, Adrien, MEd, HARBOR DEPARTMENT MANAGER, [place]) 01/28/2022 Sex and Gender Information Value Date Recorded Sex Assigned at Male 01/18/2021 11:01 AM CDT Gender Identity Not on file Sexual Orientation Not on file documented as of this encounter Plan of Treatment Upcoming Encounters Date Type Department Care Team (Late st Contact Info) Description 02/01/2024 7:20 AM CDT Ancillary Procedure Department of Cardiovascular Medicine in [place], [place] [address] [place] [address] Adam Montenegro M.D. [address] [place] [address] 02/01/2024 8:00 AM CDT Clinical Support Section of Preventive, Transportation and Occupational Medicine in [place], [place] [address] [place] [address] 02/01/2024 8:30 AM CDT Comprehensive Visit Section of Preventive, Transportation and Occupational Medicine in [place], [place] [address] [place] [address] Pasha Helton M.D., M.P.H. [address] [place] [address] 02/01/2024 9:30 AM CDT Clinical Support Section of Preventive, Transportation and Occupational Medicine in [place], [place] [address] [place] [address] documented as of this encounter Visit Diagnoses Not on filedocumented in this encounter Care Teams Tube Worker Relationship Specialty Start Date End Date Elsewhere, Pcp PCP - General Family Medicine 08/30/17 documented as of this encounter
== END 2023-12-29 12:09 | disposition home or self-care (01) ==
PROVIDERS: PCP Family Medicine; Visit Provider Family Medicine
DX: R63.5 Abnormal weight gain (principal); E78.5 Hyperlipidemia, unspecified; Z13.228 Encounter for screening for other metabolic disorders
CPT/HCPCS: 80048; 80061; 80076

== ENCOUNTER 2024-01-29 20:58 | Outpatient (CLI) | payer OTHER, SELFPAY ==
--- OUTSIDE RECORDS SUMMARY | 2024-01-29 21:00 | XMS_ITS | Clinical Summary ---
Author Organization [facility] Address [address] [place] [address] Care Team Providers Care Deli Slicer Name Role Phone Elsewhere, Pcp Primary Care Provider Unavailabl e Source Comments Patient records contain information from all sites at [facility]. For routine questions regarding patient records, call [phone] during business hours, M-F 8:00 AM - 5:00 PM Central Time. Record requests for emergency care only can be directed to [phone] at any time.[facility] Allergies No known active allergies Medications Medication Sig Dispensed Refills Start Date End Date Status cinnamon bark 500 mg capsule Take 1 capsule by mouth 2 (two) times a day. 02/08/2017 Active multivitamin tablet Take 1 tablet by mouth daily. 02/08/2017 Active vitamins A,C,U-pudm-krtsiw (PRESERVISION AREDS) 7,160 Units-113 mg-100 Units per tablet Take 1 tablet by mouth daily. 02/08/2017 Active calcium carbonate (OS-JORGE LUIS) 1,250 mg (500 mg calcium) tablet Take 1 tablet by mouth 2 (two) times a day. 02/08/2017 Active docosahexanoic acid/epa (FISH OIL ORAL) Take 1 capsule by mouth daily. 02/03/2015 Active Encounters Date Type Department Care Team Description 01/17/2024 Clinical Communication Section of Preventive, Transportation and Occupational Medicine in [place], [place] [address] [place] [address] Socorro Shields R.N. Previsit Screening 11/01/2023 Clinical Communication Section of Preventive, Transportation and Occupational Medicine in [place], [place] [address] [place] [address] Adam Montenegro M.D. from Last 3 Months [...] How often do you attend chur or episcopalian services? More than 4 times per year 01/28/2022 Do you belong to any clubs o r organizations such as evangelical groups, unions, fraternal or athletic groups, or [...] and heating? Not hard at all 01/28/2022 [facility] [place] of Occupat ional Health - Occupational Stress [...] money to buy more. Never true 01/29/20 Within the past 12 months, t he [...] place to sleep or slept in a skilled nursing (including now)? No 01/28/2022 Nutrition Answer Date [...] have received? Master's degree (e.g., MA, MS, Ardien, MEd, STAFFING RECRUITER, [place]) 01/28/2022 Sex and Gender Information Value [...] Oxygen Concentration - - Weight 92 kg ( lb 13.2 oz) 02/02/2023 2:08 PM CDT Height 176.4 cm (5' 9.45) 02/02/2023 2 :08 PM CDT Body Mass Index 29.57 02/02/2023 2:08 PM CDT Plan of Treatment Upcoming Encounters Date Type Department Care Team (Late st Contact Info) Description 02/01/2024 7:20 AM CDT Ancillary Procedure Department of Cardiovascular Medicine in [place], [place] [address] [place] [address] Adam Montenegro M.D. [address] [place] [address] 02/01/2024 8:00 AM CDT Clinical Support Section of Preventive, Transportation and Occupational Medicine in [place], [place] [address] [place] [address] 02/01/2024 8:30 AM CDT Comprehensive Visit Section of Preventive, Transportation and Occupational Medicine in [place], [place] [address] [place] [address] Pasha Helton M.D., M.P.H. [address] [place] [address] 02/01/2024 9:30 AM CDT Clinical Support Section of Preventive, Transportation and Occupational Medicine in [place], [place] [address] [place] [phone] Health Maintenance Due Date Last Done Comments CT Colonography 1978 Cologuard 1978 Colonoscopy 1978 Colorectal Cancer Screening 1978 FIT 1978 HIV Screening 1978 Hepatitis C Screening 1978 Lipid (Cholesterol) Screening 1978 Depression Screening (Annual PHQ-2) 04/24/2023 COVID-19 Vaccine ( season) 2023 03/08/2023, 02/05/2021, 05/08/2020, Additional history exists Influenza Vaccine (#1) 2024 , 02/05/2021, 02/04/2020, Additional history exists Fasting Glucose for Diabetes Screening 07/19/2025 07/19/2022 DTaP,Tdap,and Td Vaccines (8 - Td or Tdap) 07/16/2031 07/15/2021, 03/13/2010, 04/30/2004, Additional history exists Hepatitis A Vaccines Completed 03/27/2005, 03/27/2005, 05/28/2004, Additional history exists Hepatitis B Vaccines Completed 03/27/2005, 03/24/2005, 05/28/2004, Additional history exists HPV Vaccines Aged Out No longer eligi ble based on patient's age to complete this topic Pneumococcal vaccine (0-64 years) Aged Out No longer eligible based on patient's age to complete this topic Care Teams Deli Slicer Relationship Specialty Start Date End Date Elsewhere, Pcp PCP - General Family Medicine 08/30/17
--- OUTSIDE RECORDS SUMMARY | 2024-01-29 21:00 | XMS_ITS | Encounter Summary ---
Author Organization [facility] Address [address] [place] [address] Care Team Providers Care Senior Ios Developer Name Role Phone Elsewhere, Pcp Primary Care Provider Unavailabl e Reason for Visit * Reason Onset Date Comments Previsit Screening 01/17/2024 Encounter Details Date Type Department Care Team (Latest Contact Info) Description 01/17/2024 Clinical Communication Section of Preventive, Transportation and Occupational Medicine in [place], [place] [address] [place] [address] Socorro Shields R.NAp [address] [place] [phone] Previsit Screening Social History Tobacco Use Types Packs/Day Years [...] often do you attend chur ch or judaism services? More than 4 times per year 01/28/2022 Do you belong to any clubs o r organizations such as anabaptist groups, unions, fraternal or athletic groups, or [...] and heating? Not hard at all 01/28/2022 [facility] of Occupat ional Health - [...] Master's degree (e.g., MA, MS, Adrien, MEd, TOOL AND FIXTURE REPAIRER, [place]) 01/28/2022 Sex and Gender Information Value Date Recorded Sex Assigned at Male 01/18/2021 11:01 AM CDT Gender Identity Not on file Sexual Orientation Not on file documented as of this encounter Miscellaneous Notes * Addendum Note - Socorro Shields, RApN. - 01/17/2024 3:49 PM CDTAddended by: SOCORRO SHIELDS on: 01/17/2024 03:49 PM Modules accepted: Orders * Telephone Encounter - Socorro Shields RApN. - 01/17/2024 3:42 PM CDT Class: I Type: FAA and Kelley One Kelley One Audiogram: yes, 02/01/24 @ 0930 - after RN & provider appointments HIMS: No Last Medical With/ Date: Lan, 02/02/23 Scheduled With/ Date: Danie, 02/01/24 Class I Last EC02/02/23 FAA Letter: N/A FAA requirements Completed/Scheduled: N/A FAA requirements Pending: - ECG scheduled 02/01/24 documented in this encounter Plan of Treatment Upcoming Encounters Date Type Department Care Team (Late st Contact Info) Description 02/01/2024 7:20 AM CDT Ancillary Procedure Department of Cardiovascular Medicine in [place], [place] [address] [place] [phone] Adam Montenegro M.D. [address] [place] [phone] 02/01/2024 8:00 AM CDT Clinical Support Section of Preventive, Transportation and Occupational Medicine in [place], [place] [address] [place] [phone] 02/01/2024 8:30 AM CDT Comprehensive Visit Section of Preventive, Transportation and Occupational Medicine in [place], [place] [address] [place] [phone] Pasha Helton M.D., M.P.H. [address] [place] [phone] 02/01/2024 9:30 AM CDT Clinical Support Section of Preventive, Transportation and Occupational Medicine in [place], [place] [address] [place] [phone] Scheduled Orders Name Type Priority Associated Diagnoses Orde r Schedule Dipstick, POCT, Urine (nursing, interfaced) Point of Care Testing-Docked Device Routine [employer] Exam Expected: 02/01/2024, Expires: 04/17/2025 documented as of this encounter Visit Diagnoses Diagnosis [employer] Exam- Primary documented in this encounter Care Teams Senior Ios Developer Relationship Specialty Start Date End Date Elsewhere, Pcp PCP - General Family Medicine 08/30/17 documented as of this encounter
--- OUTSIDE RECORDS SUMMARY | 2024-01-29 21:00 | XMS_ITS ---
Author Organization [facility] Address [address] [place] [address] Care Team Providers Care Queen Producer Name Role Phone Unavailable Unavailable Unavailable Surgery Details Not on file Complications Check Surgery Details section. Procedure Estimated Blood Loss Check Surgery Details section. Procedure Findings Check Surgery Details section. Procedure Specimens Taken Check Surgery Details section.
--- OUTSIDE RECORDS SUMMARY | 2024-01-29 21:00 | XMS_ITS | Clinical Summary ---
Author Organization [facility] Address [place], [place] [address] Care Team Providers Care Slot Operations Director Name Role Phone Enrique Campos MD Primary Care Provider [phone]- [phone] Allergies No known active allergies Medications No [...] ag e 18-79 1996 Tetanus booster 1998 BMI (ht and wt on same day) for age 18+ 07/20/2023 07/19/2022 Depression screening for age 12+ 07/20/2023 07/19/2022 Colonoscopy through age 75 09/23/2023 Lipids for age 45-75 09/23/2023 COVID-19 vaccine series (2023- season) 2023 02/05/2021, 05/08/2020, 04/14/2020 Influenza for age 9-49 12/24/2023 Pneumococcal series for age 6-64 Aged Out No longer eligible b ased on patient's age to complete this topic Care Teams Slot Operations Director Relationship Specialty Start Date End Date Enrique Campos MD [address] [place] [address] PCP - General Family Practice 04/20/15
--- OUTSIDE RECORDS SUMMARY | 2024-01-29 21:00 | XMS_ITS | Referral Summary ---
Author Organization [facility] Address [address] [place] [address] Care Team Providers Care Automatic Tire Tester Name Role Phone Elsewhere, Pcp Primary Care Provider Unavailabl e Source Comments Patient records contain information from all sites at [facility]. For routine questions regarding patient records, call [phone] during business hours, M-F 8:00 AM - 5:00 PM Central Time. Record requests for emergency care only can be directed to [phone] at any time.[facility] Encounters Date Type Department Care Team Description 01/17/2024 Clinical Communication Section of Preventive, Transportation and Occupational Medicine in [place], [place] [address] [place] [phone] Socorro Shields R.N. Previsit Screening 11/01/2023 Clinical Communication Section of Preventive, Transportation and Occupational Medicine in [place], [place] [address] [place] [phone] Adam Montenegro M.D. from Last 3 Months Allergies No known active allergies Medications Medication Sig Dispensed Refills Start Date End Date Status cinnamon bark 500 mg capsule Take 1 capsule by mouth 2 (two) times a day. 02/08/2017 Active multivitamin tablet Take 1 tablet by mouth daily. 02/08/2017 Active vitamins A,C,A-czmq-lgtome (PRESERVISION AREDS) 7,160 Units-113 mg-100 Units per [...] How often do you attend chur or buddhist services? More than 4 times per year 01/28/2022 Do you belong to any clubs o r organizations such as catholic groups, unions, fraternal or athletic groups, or [...] and heating? Not hard at all 01/28/2022 [facility] [place] of Occupat ional Health - Occupational Stress [...] place to sleep or slept in a assisted (including now)? No 01/28/2022 Nutrition Answer Date [...] Master's degree (e.g., MA, MS, Adrien, MEd, GREASE CUP FILLER, [place]) 01/28/2022 Sex and Gender Information Value [...] Ancillary Procedure Department of Cardiovascular Medicine in [place], [place] [address] [place] [address] Adam Montenegro M.D. [address] [place] [phone] 02/01/2024 8:00 AM CDT Clinical Support Section of Preventive, Transportation and Occupational Medicine in [place], [place] [address] [place] [address] 02/01/2024 8:30 AM CDT Comprehensive Visit Section of Preventive, Transportation and Occupational Medicine in [place], [place] [address] [place] [address] Pasha Helton M.D., M.P.H. [address] [place] [phone] 02/01/2024 9:30 AM CDT Clinical Support Section of Preventive, Transportation and Occupational Medicine in [place], [place] [address] [place] [address] Care Teams Automatic Tire Tester Relationship Specialty Start Date End Date Elsewhere, Pcp PCP - General Family Medicine 08/30/17
--- OUTSIDE RECORDS SUMMARY | 2024-01-29 21:00 | XMS_ITS | Continuity of Care Document ---
Author Name [facility] Organization [facility] Care Team Providers Care Business System Manager Name Role Phone DOD-[facility] Unavailable Unavailable Problems Combined list of problems [...] Known Allergies Drug allergy (disorder) active 05/09/2007 [facility] [place] Immunizations Combined list of available immunizations from the Department of Defense and Veterans Affairs facilities. Immunization Series Date Given Administered By Site Reaction Lot Number CVX Code Drug Terrazzo Finisher Status Comments Source influenza, injectable, quadrivalent, preservative free 2020 MIROSLAVA BROOKE () Not Given influenza , injectabl e, quadrival ent, preservat idalia free DoD COVID-19, mRNA, LNP-S, PF, 30 mcg/0.3 mL dose 2020 MIROSLAVA BROOKE [place] (PFR) Not Given COVID-19, mRNA, LNP-S, PF, 30 mcg/0.3 mL dose DoD influenza, injectable, quadrivalent 2019 MIKA, () Not Given influenza , injectabl e, quadrival ent DoD influenza virus vaccine, live, attenuated, for intranasal use 1 2011 [id number] [place], [employer]. (MED) complet ed influenza virus vaccine, live, attenuate d, for intranasa l use DoD influenza virus vaccine, live, attenuated, for intranasal use 1 2010 [id number] Sanofi Pasteur ([facility]) complet ed influenza virus vaccine, live, attenuate d, for intranasa l use DoD meningococcal polysaccharid e vaccine (MPSV4) 1 2010 [id number] Sanofi Pasteur ([facility]) complet ed meningoco ccal polysacch aride vaccine (MPSV4) DoD typhoid Vi capsular polysaccharid e vaccine 1 2010 [id number] 101 Sanofi Pasteur ([facility]) complet ed typhoid Vi capsular polysacch aride vaccine DoD influenza virus vaccine, split virus (incl. purified surface antigen)-reti red CODE 1 2009 [id number] 15 [email or web address] ([facility]) complet ed influenza virus vaccine, split virus (incl. purified surface antigen)- retired CODE DoD tetanus toxoid, reduced diphtheria toxoid, and acellular pertu is vaccine, adsorbed 1 2009 [id number] 115 [employer] ([facility]) complet ed tetanus toxoid, reduced diphtheri a toxoid, and acellular pertussis vaccine, adsorbed DoD Novel influenza-H1N 1-09, injectable 1 2009 [id number] 127 Novartis Pharmaceutica l [place]. (NOV) complet ed Novel influenza -C8E4-38, injectabl e DoD influenza virus vaccine, split virus (incl. purified surface antigen)-reti red CODE 1 2008 [id number] 15 [employer] ([facility]) complet ed influenza virus vaccine, split virus (incl. purified surface antigen)- retired CODE DoD influenza virus vaccine, split virus (incl. purified surface antigen)-reti red CODE 1 2007 [id number] 15 [employer] ([facility]) complet ed influenza virus vaccine, split virus (incl. purified surface antigen)- retired CODE DoD influenza virus vaccine, split virus (incl. purified surface antigen)-reti red CODE 1 2006 [id number] 15 [employer] ([facility]) complet ed influenza virus vaccine, split virus (incl. purified surface antigen)- retired CODE DoD influenza virus vaccine, unspecified formulation 1 2005 UNK 88 Unknown (UNK) comple t ed influenza virus vaccine, unspecifi ed formulati on DoD influenza virus vaccine, split virus (incl. purified surface antigen)-reti red CODE 1 2004 [id number] 15 Sanofi Pasteur ([facility]) complet ed influenza virus vaccine, split virus (incl. purified surface antigen)- retired CODE DoD hepatitis A and hepatitis B vaccine 3 2004 [id number] [facility] ([facility] complet ed hepatitis A and hepatitis [...] Disposition Source TOMY Mcdonald(Optome try Clinic) OUTPATIENT [id number] cyclo ERNESTO JOY 08/25 Released w/o Limitations TOMY Mcdonald(Opto metry Clinic) TOMY Mcdonald(Physic al Exam Clinic) OUTPATIENT [id number] GONZALEZ KEELEY POLLACK Emili 08/25 Released w/o Limitations TOMY Mcdonald(Phys ical Exam Clinic) TOMY Mcdonald(Hearin g Conserve) OUTPATIENT [id number] NICOLE MCCRAY 08/25 Released w/o Limitations TOMY Mcdonald(Hear ing Conserv e) TOMY Mcdonald(Primar y Care Avn Clinic) OUTPATIENT [id number] ro/rw fdme WILMA MCKEE 08/25 Released w/o Limitations TOMY Mcdonald(Prim roxann Care Avn Clinic) TOMY Mcdonald(Hearin g Conserve) OUTPATIENT [id number] earplug fitting ARTHUR BURTON 08/26 Released w/o Limitations TOMY Mcdonald(Hear ing Conserv e) TOMY Mcdonald(Immuni zation Clinic) OUTPATIENT [id number] flu shot GAGANDEEP CLARK A 03/30 Released w/o Limitations TOMY Mcdonald(Immu nizatio n Clinic) TOMY Mcdonald([facility]ar [facility]) OUTPATIENT [id number] painful urinati on STEPHEN QUIÑONES A 08/08 Released w/o Limitations TOMY Mcdonald(Prim roxann Care Avn Clinic) TOMY Mcdonald(Physic al Exam Clinic) OUTPATIENT [id number] CLS2AB CANDIDA WALTERS 09/05 Released w/o Limitations TOMY Mcdonald(Phys ical Exam Clinic) [employer] [facility]) OUTPATIENT [id number] Sore Throat FLORECITA BERTRAND 08/07 Released w/o Limitations [facility]) [facility] ) OUTPATIENT [id number] JARRELL GALEANO Quinn 09/04 Released w/o Limitations [facility] Opt[facility]) [facility]) OUTPATIENT [id number] Notes Entered by: ANNMARIE ESPINOZA 04 Oct 2011 1458 ------- ------- ------- ------- -- SKIN IRRITAT FLORECITA ALMARAZ 10/03 Released w/o Limitations [facility]) [facility]) OUTPATIENT [id number] Notes Entered by: GEMMA COREAS 03 Dec 2011 0923 ------- ------- ------- ------- -- Ear Pressur e Jun 05 NICOLE CARPENTER 12/02 Released w/o Limitations [facility]) [facility]) OUTPATIENT [id number] Notes Entered by: GEMMA COREAS 05 Dec 2011 1822 ------- ------- ------- ------- -- Lip Sore November 02 NICOLE CARPENTER 12/04 Released w/o Limitations [facility]) Chayo PAULINO [place], JOSE LUIS([place] MRP Optometry ) OUTPATIENT [id number] [facility] HOLLI Hummel 12/29 Released w/o Limitations [place] PAUL[place] MR[place] Immunizat ions) OUTPATIENT [id number] Patient here for TERRIE RODRIGUEZ 12/29 Released w/o Limitations [facility] [place] MR[place] Immuniz ations) [facility] Mai [place], JOSE LUIS([place] MRP Pre & Post Deploymen t) OUTPATIENT [id number] Notes Entered by: SUNSHINE VALADEZ 02 Jan 2012 1236 ------- ------- ------- ------- -- ELVA DESHPANDE DAPHNE KIDD 01/01 Released w/o Limitations Chayo [place] JOSEL UIS([place] MR[place] Pre & Post Deploym ent) Chayo [place] JOSE LUIS([place] MR[place] Hearing Conservat ion) OUTPATIENT [id number] Notes Entered by: DEONTE FORD 05 Jan 2012 1157 ------- ------- ------- ------- -- ELVA FREEDMAN ALEXYS RON 01/04 Released w/o Limitations Chayo [place] JOSE LUIS([place] MRP Hearing Conserv ation) Procedures Combined list of: 1) Procedures from Department of Veterans Affairs facilities going back up to thelast 18 months, not all VA non-surgical procedures are included; 2) All procedures from the Department of Defense facilities. Procedure Procedure Type Code Date Perfomer Comments [facility] e Threshold Audiogram (Pure Tone) Threshold Audiogram (Pure Tone) 06795 2 ALEXYS FREEDMAN [facility] Screening Test Of Visual Acuity, Quantitative, Bilateral Screening Test Of Visual Acuity, Quantitative, Bilateral 97703 2 HOLLI BYRNE [facility] Ophthalmological New Patient Start Comprehensive Care Ophthalmological New Patient Start Comprehensive Care 76869 2 JARRELL GALEANO [facility] ECG Performance of Tracing Only ECG Performance of Tracing Only 64525 7 CANDIDA WALTERS [facility] Visual Function Screening Visual Function Screening 05989 7 CANDIDA WALTERS [facility] Influenza Split Virus Vaccine 0.5mL Dosage Intramuscular 6 ELAINE NAPIER Immunization Administration By Injection, One Vaccine Immunization Administration By Injection, One Vaccine 09689 6 ELAINE NAPIER Audiogram (Screening) Audiogram (Screening) 22870 6 NICOLE MCCRAY [facility] Audiometry Group Testing Audiometry Group Testing 78470 6 NICOLE MCCRAY Ear mold/insert, not disposable, any type 6 ARTHUR BURTON [facility] Audiogram (Screening) Audiogram (Screening) 68337 6 WILMA MCKEE [facility] Visual Function Screening Visual Function Screening 43847 6 RAFI WILMA Hsu [facility] Determination Of Refractive State Determination Of Refractive State 38750 6 ERNESTO JOY [facility] ELECTROCARDIOGRAM, ROUTINE ECG WITH AT LEAST 12 LEADS; INTERPRETATION AND REPORT ONLY 3 [facility] ELECTROCARDIOGRAM, ROUTINE ECG WITH AT LEAST 12 LEADS; TRACING ONLY, WITHOUT INTERPRETATION AND REPORT 3 [facility] VIS FUNCT SCREEN,AUTOMAT/SEMI-A UTOMAT BILAT QUANT DETERM VISUAL ACUITY,OCULAR ALIGN,COLOR VISION,PSEUDOISOCHROM AT PLATES,& FIELD VIS (MAY INC ALL/SOME SCRN DETERM FOR CONTRAST SENSITIV,VIS UND GLARE) 3 [facility] PURE TONE AUDIOMETRY (THRESHOLD); AIR ONLY 2 [facility] SCREENING TEST OF VISUAL ACUITY, QUANTITATIVE, BILATERAL 2 [facility] INFLUENZA VIRUS VACCINE, TRIVALENT, LIVE (LAIV3), FOR INTRANASAL USE 1 [facility] SCREENING TEST OF VISUAL ACUITY, QUANTITATIVE, BILATERAL 1 [facility] DETERMINATION OF REFRACTIVE STATE 5 DoD ELECTROCARDIOGRAM, ROUTINE ECG WITH AT LEAST 12 LEADS; WITH INTERPRETATION AND REPORT 5 [facility] PURE TONE AUDIOMETRY (THRESHOLD); AIR ONLY 5 [facility] ELECTROCARDIOGRAM, ROUTINE ECG WITH AT LEAST 12 LEADS; TRACING ONLY, WITHOUT INTERPRETATION AND REPORT 7 [facility] INFLUENZA VIRUS VACCINE, TRIVALENT (IIV3), SPLIT VIRUS, 0.5 ML DOSAGE, FOR INTRAMUSCULAR USE 6 [facility] EAR MOLD/INSERT, NOT DISPOSABLE, ANY TYPE 6 [facility] VIS FUNCT SCREEN,AUTOMAT/SEMI-A UTOMAT BILAT QUANT DETERM VISUAL ACUITY,OCULAR ALIGN,COLOR VISION,PSEUDOISOCHROM AT PLATES,& FIELD VIS (MAY INC ALL/SOME SCRN DETERM FOR CONTRAST SENSITIV,VIS UND GLARE) 6 [facility] AUDIOMETRIC TESTING OF GROUPS 6 [facility] DETERMINATION OF REFRACTIVE STATE 6 [facility] OPHTHALMOLOGICAL SERVICES: MEDICAL EXAMINATION AND EVALUATION WITH INITIATION OF DIAGNOSTIC AND TREATMENT PROGRAM; COMPREHENSIVE, NEW PATIENT, 1 OR MORE VISITS 2 [facility] Social History Combined list of available smoking, tobacco, and other social history from Department of Defense and Veterans Affairs facilities. Social History Type Response Date Comment [facility] e This section is an empty social history section. DoD
--- OUTSIDE RECORDS SUMMARY | 2024-01-29 21:00 | XMS_ITS | Encounter Summary ---
Author Organization [facility] Address [address] [place] [address] Care Team Providers Care Retail Analytics Manager Name Role Phone Elsewhere, Pcp Primary Care Provider Unavailabl e Encounter Details Date Type Department Care Team (Latest Contact Info) Description 11/01/2023 Clinical Communication Section of Preventive, Transportation and Occupational Medicine in [place], [place] [address] [place] [address] Adam Montenegro M.D. [address] [place] [address] Social History Tobacco Use Types Packs/Day Years [...] How often do you attend chur or latter day services? More than 4 times per year 01/28/2022 Do you belong to any clubs o r organizations such as tenriism groups, unions, fraternal or athletic groups, or [...] and heating? Not hard at all 01/28/2022 [facility] [employer] of Occupat ional Health - Occupational Stress [...] place to sleep or slept in a longterm (including now)? No 01/28/2022 Nutrition Answer Date [...] Master's degree (e.g., MA, MS, Adrien, MEd, RESIDENTIAL LIFE DIRECTOR, [place]) 01/28/2022 Sex and Gender Information Value Date Recorded Sex Assigned at Male 01/18/2021 11:01 AM CDT Gender Identity Not on file Sexual Orientation Not on file documented as of this encounter Plan of Treatment Upcoming Encounters Date Type Department Care Team (Late st Contact Info) Description 02/01/2024 7:20 AM CDT Ancillary Procedure Department of Cardiovascular Medicine in [place], [place] [address] [place] [phone] Adam Montenegro M.D. [address] [place] [address] 02/01/2024 8:00 AM CDT Clinical Support Section of Preventive, Transportation and Occupational Medicine in [place], [place] [address] [place] [address] 02/01/2024 8:30 AM CDT Comprehensive Visit Section of Preventive, Transportation and Occupational Medicine in [place], [place] [address] [place] [address] Pasha Helton M.D., M.P.H. [address] [place] [address] 02/01/2024 9:30 AM CDT Clinical Support Section of Preventive, Transportation and Occupational Medicine in [place], [place] [address] [place] [address] documented as of this encounter Visit Diagnoses Not on filedocumented in this encounter Care Teams Retail Analytics Manager Relationship Specialty Start Date End Date Elsewhere, Pcp PCP - General Family Medicine 08/30/17 documented as of this encounter
--- NOTE | 2024-02-13 12:44 | W.PM.SLEEP ---
Sleep Study Details Details Interpreting Provider: Bryan Date of Sleep Study: 01/29/24 Sleep Study Details: STUDY TYPE:? Hospital-based attended ? BMI:? 30.1 ORDERING PROVIDER:Major Townsend INDICATION:? Concern about sleep apnea ? SLEEP SUMMARY:? 380 minutes total sleep time RESPIRATORY SUMMARY:? 4.2 minutes oxygen between 80 and 88% AHI per CMS guideline 11.2, per rule 1821.8 Supine AHI 25.6, nonsupine 15.7, supine REM AHI 34.7 PERIODIC LIMB MOVEMENTS OF SLEEP:? None noted CARDIAC:? Awake 83, asleep 74, rare PVCs noted IMPRESSION:? Moderate obstructive sleep apnea with supine and REM dependency RECOMMENDATION: Treatment options include CPAP, dental appliance and/or airway expansion surgery.
== END 2024-01-29 20:59 | disposition home or self-care (01) ==
LOC: SLEEP 20:58
PROVIDERS: PCP Family Medicine; Visit Provider Family Medicine
DX: G47.33 Obstructive sleep apnea (adult) (pediatric) (principal)
CPT/HCPCS: 95810

== ENCOUNTER 2024-02-20 09:38 | Emergency (ER) | payer OTHER, SELFPAY ==
[2024-02-20 09:50] VITALS: BP 151/102; PULSE 76; RESP 18; TEMP 37; O2SAT 100; BMI 30.1
--- NOTE | 2024-02-20 10:11 | CT_ITS ---
Patient: LUPE WEINBERG Facility:?[facility] RIS Patient ID:?[id number] Site Patient ID:?[id number]. Site :?[id number] Study:?CT-Chest WITHOUT-02/20/2024 10:42:46 AM Ordering Physician:Amadou Mcleod Final Report: INDICATION: Fall 2 days ago TECHNIQUE: CT chest without contrast. COMPARISON: None. FINDINGS: Lungs and pleura: No pleural effusion or pneumothorax. Scattered minimal dependent atelectasis, most pronounced into the right lower lobe. No suspicious lung mass or nodule. Heart and vasculature: Heart size is normal. Thoracic aorta and pulmonary artery are normal in caliber. No pericardial effusion. Lymph nodes. No concerning mediastinal or axillary lymphadenopathy by size criteria. Limited assessment for the hilar lymph nodes on noncontrast exam. Few calcified mediastinal and right hilar lymph nodes. Upper abdomen: No significant findings. Bones: Thoracic vertebral body height and alignment is maintained without concerning bony lesion. No acute vertebral wedging compression fracture. Schmorl`s node along the superior endplate of T6. Healing right 6th rib fracture posteriorly. IMPRESSION: Healing fracture of right 6th rib posteriorly. Scattered minimal dependent atelectasis; otherwise, no acute traumatic injury. Please note that all CT scans at this facility use dose modulation, iterative reconstruction, and/or weight-based dosing when appropriate to reduce radiation dose to as low as reasonably achievable. Dictated by Tony Wadsworth MD @ 02/20/2024 10:55:11 AM Signed by:?Tony Wadsworth MD @02/20/2024 10:55:11 AM (Electronic Signature)
--- OUTSIDE RECORDS SUMMARY | 2024-02-20 10:58 | XMS_ITS ---
Author Organization [facility] Address [address] [place] [address] Care Team Providers Care Hand Assembler Name Role Phone Unavailable Unavailable Unavailable Surgery Details Not on file Complications Check Surgery Details section. Procedure Estimated Blood Loss Check Surgery Details section. Procedure Findings Check Surgery Details section. Procedure Specimens Taken Check Surgery Details section.
--- OUTSIDE RECORDS SUMMARY | 2024-02-20 10:58 | XMS_ITS | Clinical Summary ---
Author Organization [facility] Address [address] [place] [address] Care Team Providers Care Fiberglass Pipe Covering Supervisor Name Role Phone Elsewhere, Pcp Primary Care Provider Unavailabl e Source Comments Patient records contain information from all sites at [facility]. For routine questions regarding patient records, call [phone] during business hours, M-F 8:00 AM - 5:00 PM Central Time. Record requests for emergency care only can be directed to [phone] at any time.[facility] Allergies No known active allergies Medications * This document contains information received from the source organization and may not represent a complete record from that organization. cinnamon bark 500 mg capsule Take 1 capsule by mouth 2 (two) times a day. 02/08/2017 Active multivitamin tablet Take 1 tablet by mouth daily. 02/08/2017 Active vitamins A,C,E-zinc-laxmi er (PRESERVISION AREDS) 7,160 Units-113 mg-100 Units per tablet Take 1 tablet by mouth daily. 02/08/2017 Active calcium carbonate (OS-JORGE LUIS) 1,250 mg (500 mg calcium) tablet Take 1 tablet by mouth 2 (two) times a day. 02/08/2017 Active docosahexanoic acid/epa (FISH OIL ORAL) Take 1 capsule by mouth daily. 02/03/2015 Active Encounters Date Type Department Care Team Description 02/01/2024 9:30 AM CDT Clinical Support Section of Preventive, Transportation and Occupational Medicine in [place], [place] [address] [place] [address] Audiogram (Primary Dx) 02/01/2024 8:30 AM CDT Comprehensive Visit Section of Preventive, Transportation and Occupational Medicine in [place], [place] [address] [place] [address] Pasha Helton M.D., M.P.H. Federal Aviation Administration Exam; Loss Weight; Counseling Preventive 02/01/2024 8:00 AM CDT Clinical Support Section of Preventive, Transportation and Occupational Medicine in [place], [place] [address] [place] [address] 02/01/2024 Orders Only Section of Preventive, Transportation and Occupational Medicine in [place], [place] [address] [place] [address] Pasha Helton M.D., M.P.H. 01/17/2024 Clinical Communication Section of Preventive, Transportation and Occupational Medicine in [place], [place] [address] [place] [address] Socorro Shields, RApN. Previsit Screening from Last 3 Months Immunizations Name Administration [...] Former Smokeless Tobacco: Former Chew Quit: 04/24/2009 [facility] Utilities Answer Date Recorded In the past 12 months has th e [employer], [email or web address], or water [employer] threatened to shut off services in your home? No 01/30/2024 Humiliation, Afraid, Rape, and Kick questionnair e [...] often do you attend chur ch or jain services? More than 4 times per year 01/28/2022 Do you belong to any clubs o r organizations such as mandaen groups, unions, fraternal or athletic groups, or [...] and heating? Not hard at all 01/28/2022 [employer] of Occupat ional [facility] - Occupational Stress Questionnaire Answer Date Recorded [...] to strenuous exercise (like a brisk walk)? 4 days 01/30/2024 On average, how many minutes do you engage in exercise at this level? 30 min 01/30/2024 Hunger Vital Sign Answer Date Recorded Within the past 12 months, y ou worried that your food would run out before you got the money to buy more. Never true 01/30/20 24 Within the past 12 months, t he food you bought just didn't last and you didn't have money to get more. Never true 01/30/2024 PRAPARE - Transportation Answer Date Re corded In the past 12 months, has l ack of transportation kept you from medical appointments or from getting medications? No 11/2023 In the past 12 months, has l ack of transportation kept you from meetings, work, or from getting things needed for daily living? No 01/30/2024 Nutrition Answer Date Recorded On average, how many serving s of fruits and vegetables do you eat per day (serving size is equal to 1 cup or approximately the size of a tennis ball)? 3-5 01/30/2024 Dental Answer Date Recorded Dental: Regular Dentist Yes 01/29/20 Employment Answer Date Recorded Employment status Employed and actively working without restrictions 01/30/2024 Housing Stability Answer Date Recorded What is your living situation today? I have a [facility] [place] place to live 01/30/2024 Education Answer Date Recorded What is the highest level of school you have completed or the highest degree you have received? 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 Oxygen Saturation - - Inhaled Oxygen Concentration - - Weight 97 kg (213 lb 13.5 oz) 02/01/2024 7:41 AM CDT Height 178 cm (5' 10.08) 02/01/2024 7: 41 AM CDT Body Mass Index 30.61 02/01/2024 7:41 AM CDT Plan of Treatment Health Maintenance Due Date Last Done Comments CT Colonography 1978 Cologuard 1978 Colonoscopy 1978 Colorectal Cancer Screening 1978 FIT 1978 HIV Screening 1978 Hepatitis C Screening 1978 Lipid (Cholesterol) Screening 1978 Depression Screening (Annual PHQ-2) 04/24/2023 COVID-19 Vaccine ( season) 2023 02/05/2021, 05/08/2020, 04/14/2020 Influenza Vaccine (#1) 2024 , 02/05/2021, 02/04/2020, [...] on patient's age to complete this topic Procedures Procedure Name Priority Date/Time Associated Diagnosis Comments [place] URINALYSIS AUTO WO MICRO Routine 02/01/2024 7:57 AM CDT ECG FAA Routine 02/01/2024 7:08 AM CDT Integen[employer]ation Administration Exam Loss Weight Counseling Preventive from Last 3 Months Results * Dipstick, POCT, Urine (02/01/2024 7:57 AM CDT) Glucose, POCT, U Negative Negative mg/dL 02/01/2024 7:58 AM CDT PCDT Ketone, POCT, U Negative Negative mg/dL 02/01/2024 7:58 AM CDT PCDT Specific [place], POCT, U <=1.005 1.005 - 1.030 02/01/2024 7:58 AM CDT PCDT Blood, POCT, U Negative Negative 02/01/2024 7:58 AM CDT PCDT pH, POCT, Urine 6.0 5.0 - 8.0 02/01/2024 7:58 AM CDT PCDT Protein, POCT, U Negative Negative mg/dL 02/01/2024 7:58 AM CDT PCDT Nitrites, POCT, U Negative Negative 02/01/2024 7:58 AM CDT PCDT Leukocytes, POCT, U Negative Negative 02/01/2024 7:58 AM CDT PCDT Urine 02/01/2024 7:57 AM CDT 02/01/2024 7:58 AM CDT us Unknown Provider LAB POCT ORDERABLES - DEVICE Fi nal Result [facility] [address] [place] [address], [facility] PCDT [facility] POC [address] [place] [address] * ECG FAA (02/01/2024 7:08 AM CDT) Ventricular Rate ECG/Min 67 BPM MUSE [place] Interval 156 ms MUSE QRSD Interval 96 ms MUSE QT Interval 378 ms MUSE QTC Interval 399 ms MUSE P [place] 16 degrees MUSE R [place] 2 degrees MUSE T Wave [place] 8 degrees MUSE 02/01/2024 7:08 AM CDT 02/01/2024 7:14 AM CDT Impressions MUSE - 02/01/2024 7:14 AM CDT Normal sinus rhythm Normal ECG When compared with ECG of 02-Feb-2023 12:16, No significant change was found Reviewed by STEFANIE Gallegos ECG transmitted to FAA Narrative Procedure Note Christopher Hayes Jr., M.D. - 02/01/2024 IMPRESSION: Normal sinus rhythm Normal ECG When compared with ECG of 02-Feb-2023 12:16, No significant change was found Reviewed by STEFANIE Gallegos ECG transmitted to FAA Adam Montenegro M.D. ECG ORDERABLES Final Result MUSE NA from Last 3 Months Insurance [facility] Care Teams Fiberglass Pipe Covering Supervisor Relationship Specialty Start Date End Date Elsewhere, Pcp PCP - General Family Medicine 08/30/17
--- OUTSIDE RECORDS SUMMARY | 2024-02-20 10:58 | XMS_ITS | Referral Summary ---
Author Organization [facility] Address [address] [place] [address] Care Team Providers Care Graphic Design Intern Name Role Phone Elsewhere, Pcp Primary Care Provider Unavailabl e Source Comments Patient records contain information from all sites at [facility]. For routine questions regarding patient records, call [phone] during business hours, M-F 8:00 AM - 5:00 PM Central Time. Record requests for emergency care only can be directed to [phone] at any time.[facility] Encounters Date Type Department Care Team Description 02/01/2024 Orders Only Section of Preventive, Transportation and Occupational Medicine in [place], [place] [address] [place] [address] Pasha Helton M.D., M.P.H. 02/01/2024 9:30 AM CDT Clinical Support Section of Preventive, Transportation and Occupational Medicine in [place], [place] [address] [place] [address] Audiogram (Primary Dx) 02/01/2024 8:30 AM CDT Comprehensive Visit Section of Preventive, Transportation and Occupational Medicine in [place], [place] [address] [place] [address] Pasha Helton M.D., M.P.H. Federal Aviation Administration Exam; Loss Weight; Counseling Preventive 02/01/2024 8:00 AM CDT Clinical Support Section of Preventive, Transportation and Occupational Medicine in [place], [place] [address] [place] [address] 01/17/2024 Clinical Communication Section of Preventive, Transportation and Occupational Medicine in [place], [place] [address] [place] [address] Socorro Shields R.N. Previsit Screening from Last 3 Months Allergies No known active allergies Medications * [...] Former Smokeless Tobacco: Former Chew Quit: 04/24/2009 [facility] Utilities Answer Date Recorded In the past 12 months has th e [employer], [employer], or water [employer] threatened to shut off services in your [...] often do you attend chur ch or quaker services? More than 4 times per year 01/28/2022 Do you belong to any clubs o r organizations such as confucianist groups, unions, fraternal or athletic groups, or [...] and heating? 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 Gender Identity Not on file Sexual Orientation [...] 02/01/2024 7:41 AM CDT Plan of Treatment Not on file Procedures Procedure Name Priority Date/Time Associated Diagnosis Comments [place] URINALYSIS AUTO WO MICRO Routine 02/01/2024 7:57 AM CDT ECG FAA Routine 02/01/2024 7:08 AM CDT Federal Aviation Administration Exam Loss Weight Counseling Preventive from Last 3 Months Results * Dipstick, POCT, Urine (02/01/2024 7:57 AM CDT) Glucose, POCT, U Negative Negative mg/dL 02/01/2024 7:58 AM CDT PCDT Ketone, POCT, U Negative Negative mg/dL 02/01/2024 7:58 AM CDT PCDT Specific [place], POCT, U <=1.005 1.005 - 1.030 02/01/2024 [...] 7:57 AM CDT 02/01/2024 7:58 AM CDT Unknown Provider LAB POCT ORDERABLES - DEVICE Fi nal Result Performing Organization Address [facility] de Phone Number POC [facility] [address] [place] [address], [facility] PCDT [facility] [address] [place] [address] * ECG FAA (02/01/2024 7:08 AM CDT) Ventricular Rate ECG/Min 67 BPM MUSE [place] Interval 156 ms MUSE QRSD Interval 96 ms MUSE QT Interval 378 ms MUSE QTC Interval 399 ms MUSE P [place] 16 degrees MUSE R [place] 2 degrees MUSE T Wave [place] 8 degrees MUSE 02/01/2024 7:08 AM CDT [...] by STEFANIE Gallegos ECG transmitted to FAA us Adam Montenegro M.D. ECG ORDERABLES Final Result Performing Organization Address [facility] Co de Phone Number MUSE NA from Last 3 Months Insurance Care Teams Graphic Design Intern Relationship Specialty Start Date End Date Elsewhere, Pcp PCP - General Family Medicine 08/30/17
--- OUTSIDE RECORDS SUMMARY | 2024-02-20 10:59 | XMS_ITS | Encounter Summary ---
Author Organization [facility] Address [address] [place] [address] Care Team Providers Care Brim Ironer Hand Name Role Phone Elsewhere, Pcp Primary Care Provider Unavailabl e Reason for Visit * Reason Onset Date Comments Previsit Screening 01/17/2024 Encounter Details Date Type Department Care Team (Latest Contact Info) Description 01/17/2024 Clinical Communication Section of Preventive, Transportation and Occupational Medicine in [place], [place] [address] [place] [address] Socorro Shields R.NAp [address] [place] [phone] Previsit Screening Social History Tobacco Use Types [...] often do you attend chur ch or orthodox services? More than 4 times per year 01/28/2022 Do you belong to any clubs o r organizations such as jewish groups, unions, fraternal or athletic groups, or [...] and heating? Not hard at all 01/28/2022 [facility] of Occupat ional Health - Occupational [...] place to sleep or slept in a fci (including now)? 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 - 01/17/2024 3:49 PM CDTAddended by: SOCORRO SHIELDS on: 01/17/2024 03:49 PM Modules accepted: Orders * Telephone Encounter - Socorro Shields, R.N. - 01/17/2024 3:42 PM CDT Class: I Type: FAA and Kelley One Kelley One Audiogram: yes, 02/01/24 @ 0930 - after RN & provider appointments HIMS: No Last Medical With/ Date: Montenegro, 02/02/23 Scheduled With/ Date: Danie, 02/01/24 Class I Last EC02/02/23 FAA Letter: N/A FAA requirements Completed/Scheduled: N/A FAA requirements Pending: - ECG scheduled 02/01/24 documented in this encounter Plan of Treatment Scheduled Orders Name Type Priority Associated Diagnoses Orde r Schedule Dipstick, POCT, Urine (nursing, interfaced) Point of Care Testing-Docked Device Routine Federal Aviation Administration Exam Expected: 02/01/2024, Expires: 04/17/2025 documented as of this encounter Visit Diagnoses Diagnosis Federal [employer] Administration Exam- Primary documented in this encounter Care Teams Brim Ironer Hand Relationship Specialty Start Date End Date Elsewhere, Pcp PCP - General Family Medicine 08/30/17 documented as of this encounter
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
--- OUTSIDE RECORDS SUMMARY | 2024-02-20 10:59 | XMS_ITS | Encounter Summary ---
Author Organization [facility] Address [address] [place] [address] Care Team Providers Care Congressional [place] Aide Name Role Phone Elsewhere, Pcp Primary Care Provider Unavailabl e Reason for Visit * Reason Comments Utility Locate Technician Annual Encounter Details Date Type Department Care Team (Late st Contact Info) Description 02/01/2024 8:00 AM CDT Clinical Support Section of Preventive, Transportation and Occupational Medicine in [place], [place] [address] [place] [address] Social History Tobacco Use Types Packs/Day Years Used Date Smoking Tobacco: Former Smokeless Tobacco: Former Chew Quit: 04/24/2009 [facility] Utilities Answer Date Recorded In the past 12 months has e [employer], gas, oil, or water [employer] threatened to shut off services in your [...] often do you attend chur ch or voodoo services? More than 4 times per year 01/28/2022 Do you belong to any clubs o r organizations such as religion groups, unions, fraternal or athletic groups, or [...] and heating? Not hard at all 01/28/2022 [facility] Occupat ional Health - [...] your living situation today? I have a [facility] place to live 01/30/2024 Education Answer Date Recorded What is the highest level of school you have completed or the highest degree you have received? 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 - 02/01/2024 8:00 AM CDT FAA Nurse Visit Triston Harris is a 43 y.o. male here for a FAA Class I FAA Medical Certificate examination. Applicant has completed the 8500-8 form on-line: the confirmation number is [id number]. Photo ID confirmed: YES Height: 178 cm; 70 inches Weight: 97 [...] Results in Epic. Glucose: negative Protein: negative documented in this encounter Plan of Treatment Scheduled Orders Name Type Priority Associated Diagnoses Orde r Schedule Audiology evaluation Audiology Orde red: 02/01/2024 documented as of this encounter Procedures Procedure Name Priority Date/Time Associated Diagnosis Comments ID URINALYSIS AUTO WO MICRO Routine 02/01/2024 7:57 AM CDT documented in this encounter Results * Dipstick, POCT, Urine (02/01/2024 7:57 AM CDT) Glucose, POCT, U Negative Negative mg/dL 02/01/2024 7:58 AM CDT PCDT Ketone, POCT, U Negative Negative mg/dL 02/01/2024 7:58 AM CDT PCDT Specific [place], POCT, U <=1.005 1.005 - 1.030 02/01/2024 [...] POCT ORDERABLES - DEVICE Fi nal Result [facility] [address] [place] [address], [facility] PCDT [facility] POC [address] [place] [address] documented in this encounter Visit Diagnoses Not on filedocumented in this encounter Care Teams [place] Aide Relationship Specialty Start Date End Date Elsewhere, Pcp PCP - General Family Medicine 08/30/17 documented as of this encounter
--- OUTSIDE RECORDS SUMMARY | 2024-02-20 10:59 | XMS_ITS | Encounter Summary ---
Author Organization [facility] Address [address] [place] [address] Care Team Providers Care Airplane Technician Name Role Phone Elsewhere, Pcp Primary Care Provider Unavailabl e Reason for Visit * Reason Comments Audio Exam Encounter Details Date Type Department Care Team (Latest Contact Info) Description 02/01/2024 9:30 AM CDT Clinical Support Section of Preventive, Transportation and Occupational Medicine in [place], [place] [address] [place] [address] Audiogram (Primary Dx) Social History Tobacco Use Types Packs/Day Years Used Date Smoking Tobacco: Former Smokeless Tobacco: Former Chew Quit: 04/24/2009 [facility] Utilities Answer Date Recorded In the past 12 months has e [employer], gas, oil, or water [employer] threatened to shut off services in your [...] often do you attend chur ch or amish services? More than 4 times per year 01/28/2022 Do you belong to any clubs o r organizations such as temple groups, unions, fraternal or athletic groups, or [...] and heating? Not hard at all 01/28/2022 [facility] Occupat ional [facility] - [...] your living situation today? I have a [facility] place to live 01/30/2024 Education Answer Date Recorded What is the highest level of school you have completed or the highest degree you have received? 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 [place]. - 02/01/2024 9:30 AM CDT Triston Harris is here for an annual audiogram. Otoscope inspection completed and wax removalnot needed. Audiogram results and Occupational Health Audiometry questionnaire will be scanned intothe chart. OPAL completed to release the results and questionnaire to [facility] at [email or web address]. documented in this encounter Plan of Treatment Not on file documented as of this encounter Visit Diagnoses Diagnosis Audiogram- Primary documented in this encounter Care Teams Airplane Technician Relationship Specialty Start Date End Date Elsewhere, Pcp PCP - General Family Medicine 08/30/17 documented as of this encounter
--- OUTSIDE RECORDS SUMMARY | 2024-02-20 10:59 | XMS_ITS | Clinical Summary ---
Author Organization [facility] Address [place], [place] [address] Care Team Providers Care Callisthenics Instructor Name Role Phone Enrique Campos MD Primary Care Provider [phone] Allergies No known active allergies Medications No known medications Encounters Date Type Department Care Team Description 02/17/2024 2:40 PM CDT Ancillary Procedure [facility] [address] [facility] [address] [place] [address] Arrived 02/17/2024 2:05 PM CDT Office Visit [facility] [address] [facility] [address] [place] [address] Diana Seo MD Chest Injury 02/17/2024 Travel from Last 3 Months Family History Relation Name Status Comments Father Alive Mother Alive Social History Tobacco Use Types Packs/Day Years Used Date Smoking Tobacco: Former Cigarettes Smokeless Tobacco: Never Tobacco Cessation:Counseling Given: Not Answered Alcohol Use Standard Drinks/Week Comments Yes 0 (1 standard drink = 0.6 oz pur e alcohol) PHQ-2 Answer Date Recorded PHQ-2 TOTAL SCORE 0 07/19/2022 Social Connections Answer Date Recorded Do you often feel lonely or isolated from those around you? 0 02/17/2024 Financial Resource Strain Answer Date R ecorded Difficulty of Paying Living Expenses 3 02/17/2024 Difficulty of Paying Living Expenses Not on file 02/17/2024 Food Insecurity Answer Date Recorded Do you worry your food will run out before you are able to buy more? 1 02/17/2024 Transportation Needs Answer Date Record ed Does lack of transportation keep you from medica l appointments? 1 02/17/2024 Does lack of transportation keep you from work, meetings or getting things that you need? 1 02/17/2024 Housing Stability Answer Date Recorded What is your housing situation today? 1 02/17/2024 Sex and Gender Information Value Date Recorded Sex Assigned at Not on file Gender Identity Not on file Sexual Orientation Not on file Obstetrics History Last Filed Vital Signs Vital Sign Reading Time Taken Comments Blood Pressure 121/72 02/17/2024 2:16 PM CDT Pulse 108 02/17/2024 2:16 PM CDT Temperature 36.5 ??C (97.7 ??F) 02/17/2024 2:16 PM CD T Respiratory Rate 18 02/17/2024 2:16 PM CDT Oxygen Saturation 94% 02/17/2024 2:16 PM CDT Inhaled Oxygen Concentration - - Weight 100.2 kg (221 lb) 02/17/2024 2:16 PM CDT Height 177.3 cm (5' 9.8) 07/19/2022 9:03 AM CDT Body Mass Index 31.89 07/19/2022 9:03 AM CDT Plan of Treatment Upcoming Encounters Date Type Department Care Team (Late st Contact Info) Description 05/01/2024 9:00 AM FRONT OFFICE SPECIALIST [facility] [address] [place] [address] Michael Espinoza MD [address] [place] [address] Health Maintenance Due Date Last Done Comments Tdap 1989 HIV for age 15-65 1993 Hepatitis C screening for age 18-79 1996 Tetanus booster 1998 BMI (ht and wt on same day) for age 18+ 07/20/2023 07/19/2022 Depression screening for age 12+ 07/20/2023 07/19/2022 Colonoscopy through age 75 09/23/2023 Lipids for age 45-75 09/23/2023 COVID-19 vaccine series ( season) 2023 03/08/2023, 02/05/2021, 05/08/2020, Additional history exists Influenza for age 9-49 12/24/2023 Pneumococcal series for age 6-64 Aged Out No longer eligible based on patient's age to complete this topic Procedures Procedure Name Priority Date/Time Associated Diagnosis Comments XR RIBS BILATERAL AND CHEST MINIMUM 4 VIEWS STAT 02/17/2024 2:52 PM CDT Injury due to fall, initial encounter Rib pain from Last 3 Months Results * XR RIBS BILATERAL AND CHEST MINIMUM 4 VIEWS (02/17/2024 2:52 PM CDT) Anatomical Region Laterality Modality RIBS, CHEST, RIBS L, RIBS R Digi tejas Radiography 02/17/2024 3:11 PM CDT Narrative 02/17/2024 3:11 PM CDT For Patients: ??As a result of the Cures Act, medical imaging exams and procedure reports are released immediately into your electronic medical record. ??You may view this report before your referring provider. ??If you have questions, please contact your health care provider. Indication: bilateral ribs pain after fall playing hockey Technique: Frontal and oblique views of the bilateral ribs Comparison: None Findings/Impression: No acute, displaced fracture or malalignment. No suspicious osseous lesions. The soft tissues are unremarkable. The cardiomediastinal silhouette and pulmonary vasculature are unremarkable. There is no focal airspace consolidation, pleural effusion, or pneumothorax. Dictated by Nguyễn Warner MD @ 02/17/2024 3:11:30 PM (Electronically Signed) Procedure Note Nguyễn Warner MD - 02/17/2024 For Patients: As a result of the s Act, medical imagingexams and procedure reports are released immediately into your electronicmedical record. You may view this report before your referring provider.If you have questions, please contact your health care provider. Indication: bilateral ribs pain after fall playing hockey Technique: Frontal and oblique views of the bilateral ribs Comparison: None Findings/Impression: No acute, displaced fracture or malalignment. No suspicious osseouslesions. The soft tissues are unremarkable. The cardiomediastinal silhouette and pulmonary vasculature areunremarkable. There is no focal airspace consolidation, pleural effusion, orpneumothorax. Dictated by Nguyễn Warner MD @ 02/17/2024 3:11:30 PM (Electronically Signed) Diana Seo MD GENERAL IMAG ING from Last 3 Months Care Teams Callisthenics Instructor Relationship Specialty Start Date End Date Enrique Campos MD [address] [place] [address] PCP - General Family Practice 04/20/15
--- OUTSIDE RECORDS SUMMARY | 2024-02-20 10:59 | XMS_ITS | Encounter Summary ---
Author Organization [facility] Address [address] [place] [address] Care Team Providers Care Surgical Pathologist Name Role Phone Elsewhere, Pcp Primary Care Provider Unavailabl e Encounter Details Date Type Department Care Team (Latest Contact Info) Description 11/01/2023 Clinical Communication Section of Preventive, Transportation and Occupational Medicine in [place], [place] [address] [place] [address] Adam Montenegro M.D. [address] [place] [address] Social History Tobacco Use Types Packs/Day Years [...] How often do you attend chur or uatsdin services? More than 4 times per year 01/28/2022 Do you belong to any clubs o r organizations such as hoahaoism groups, unions, fraternal or athletic groups, or [...] and heating? Not hard at all 01/28/2022 [facility] of Occupat ional Health - Occupational Stress [...] place to sleep or slept in a usp (including now)? 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
--- OUTSIDE RECORDS SUMMARY | 2024-02-20 10:59 | XMS_ITS | Encounter Summary ---
Author Organization [facility] Address [address] [place] [address] Care Team Providers Care Psychiatric Tech Name Role Phone Elsewhere, Pcp Primary Care Provider Unavailabl e Encounter Details Date Type Department Care Team (Late st Contact Info) Description 02/01/2024 Orders Only Section of Preventive, Transportation and Occupational Medicine in [place], [place] [address] [place] [phone] Pasha Helton M.D., M.P.H. [address] [place] [phone] Social History Tobacco Use Types Packs/Day Years Used Date Smoking Tobacco: Former Smokeless Tobacco: Former Chew Quit: 04/24/2009 [facility] Utilities Answer Date Recorded In the past [address] [facility] [employer], gas, oil, or water [employer] threatened to shut off services in your [...] How often do you attend chur or advent services? More than 4 times per year 01/28/2022 Do you belong to any clubs o r organizations such as sabianism groups, unions, fraternal or athletic groups, or [...] your living situation today? I have a [facility] place to live 01/30/2024 Education Answer Date Recorded What is the highest level of school you have completed or the highest degree you have received? 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
--- OUTSIDE RECORDS SUMMARY | 2024-02-20 10:59 | XMS_ITS | Continuity of Care Document ---
Author Name [facility] Organization [facility] Care Team Providers Care Flight Communications Operator Name Role Phone DOD-VA Unavailable Unavailable Problems [...] Drug allergy (disorder) active 05/09/2007 [facility] [place] Immunizations Combined list of available immunizations from the Department of Defense and Veterans Affairs facilities. Immunization Series Date Given Administered By Site Reaction Lot Number CVX Code Drug New Account Interviewer Status Comments Source influenza, injectable, quadrivalent, preservative free 2020 MIROSLAVA BROOKE () Not Given influenza , injectabl e, quadrival ent, preservat idalia free DoD COVID-19, mRNA, LNP-S, PF, 30 mcg/0.3 mL dose 2020 MIROSLAVA BROOKE [employer] (PFR) Not Given COVID-19, mRNA, LNP-S, PF, 30 mcg/0.3 mL dose DoD influenza, injectable, quadrivalent 2019 MIKA, () Not Given influenza , injectabl e, quadrival ent DoD influenza virus vaccine, live, attenuated, for intranasal use 1 2011 [id number] [employer], [employer]. (MED) complet ed influenza virus vaccine, live, attenuate d, for intranasa l use DoD influenza virus vaccine, live, attenuated, for intranasal use 1 2010 [id number] Sanofi Pasteur ([facility]) complet ed influenza virus vaccine, live, attenuate d, for intranasa l use DoD meningococcal polysaccharid e vaccine (MPSV4) 1 2010 [id number] Sanofi Pasteur ([facility]) complet ed meningoco ccal polysacch aride vaccine (MPSV4) DoD typhoid Vi capsular polysaccharid e vaccine 1 2010 [id number] Sanofi Pasteur ([facility]) complet ed typhoid Vi capsular polysacch aride vaccine DoD influenza virus vaccine, split virus (incl. purified surface antigen)-reti red CODE 1 2009 [id number] 15 JETME ([facility]) complet ed influenza virus vaccine, split virus (incl. purified surface antigen)- retired CODE DoD tetanus toxoid, reduced diphtheria toxoid, and acellular pertu is vaccine, adsorbed 1 2009 [id number] 115 [employer] (AVB) complet ed tetanus toxoid, reduced diphtheri a toxoid, and acellular pertussis vaccine, adsorbed DoD Novel influenza-H1N 1-09, injectable 1 2009 [id number] 127 [employer] [place]. (NOV) complet ed Novel influenza -M2H7-28, injectabl e DoD influenza virus vaccine, split virus (incl. purified surface antigen)-reti red CODE 1 2008 [id number] 15 Zidishaine ([facility]) complet ed influenza virus vaccine, split virus (incl. purified surface antigen)- retired CODE DoD influenza virus vaccine, split virus (incl. purified surface antigen)-reti red CODE 1 2007 [id number] 15 [employer] ([facility]) complet ed influenza virus vaccine, split virus (incl. purified surface antigen)- retired CODE DoD influenza virus vaccine, split virus (incl. purified surface antigen)-reti red CODE 1 2006 [id number] 15 [employer] ([facility]) complet ed influenza virus vaccine, split virus (incl. purified surface antigen)- retired CODE DoD influenza virus vaccine, unspecified formulation 1 2005 [id number] Unknown (UNK) comple t ed influenza virus vaccine, unspecifi ed formulati on DoD influenza virus vaccine, split virus (incl. purified surface antigen)-reti red CODE 1 2004 [id number] Sanofi Pasteur ([facility]) complet ed influenza virus vaccine, split virus (incl. purified surface antigen)- retired CODE DoD hepatitis A and hepatitis B vaccine 3 2004 [id number] [facility] complet ed hepatitis A and hepatitis [...] Disposition Source TOMY Mcdonald([facility]) OUTPATIENT [id number] cyclo ERNESTO JOY 08/25 Released w/o Limitations TOMY Mcdonald([facility]o metry [facility]) TOMY Mcdonald(Physic al Exam Clinic) OUTPATIENT [id number] GONZALEZ KEELEY POLLACK Emili 08/25 Released w/o Limitations TOMY Mcdonald(Phys ical Exam Clinic) TOMY Mcdonald(Hear[facility]erve) OUTPATIENT [id number] NICOLE MCCRAY 08/25 Released w/o Limitations TOMY Mcdonald(Hear ing Conserv e) TOMY Mcdonald([facility]) OUTPATIENT [id number] ro/rw fdme WILMA MCKEE 08/25 Released w/o Limitations TOMY Mcdonald(Prim roxann Care [facility]n Clinic) TOMY Mcdonald([facility]) OUTPATIENT [id number] earplug fitting ARTHUR BURTON 08/26 Released w/o Limitations TOMY Mcdonald(Hear ing Conserv e) TOMY Mcdonald(Immuni zation Clinic) OUTPATIENT [id number] flu shot GAGANDEEP CLAKR A 03/30 Released w/o Limitations TOMY Mcdonald(Immu nizatio n Clinic) TOMY Mcdonald([facility]) OUTPATIENT [id number] painful urinati on STEPHEN QUIÑONES A 08/08 Released w/o Limitations TOMY Mcdonald(Prim roxann Care Avn Clinic) TOMY Mcdonald(Physic al Exam Clinic) OUTPATIENT [id number] CLS2AB CANDIDA WALTERS 09/05 Released w/o Limitations TOMY Mcdonald(Phys ical Exam Clinic) [employer] [facility]) OUTPATIENT [id number] Sore Throat FLORECITA BERTRAND 08/07 Released w/o Limitations [facility]) [facility] ) OUTPATIENT [id number] JARRELL GALEANO Quinn 09/04 Released w/o Limitations [facility]) [facility]) OUTPATIENT [id number] Notes Entered by: ANNMARIE ESPINOZA 04 Oct 2011 1458 ------- ------- ------- ------- -- SKIN IRRITAT FLORECITA ALMARAZ 10/03 Released w/o Limitations [facility]) [facility]) OUTPATIENT [id number] Notes Entered by: GEMMA COREAS 03 Dec 2011 0923 ------- ------- ------- ------- -- Ear Pressur e Jun 05 NICOLE CARPENTER 12/02 Released w/o Limitations [facility]) [facility]) OUTPATIENT [id number] Notes Entered by: GEMMA COREAS 05 Dec 2011 1822 ------- ------- ------- ------- -- Lip Sore November 02 NICOLE CARPENTER 12/04 Released w/o Limitations [facility]) Chayo PAULINO [place], JOSE LUIS([place] [facility] Optometry ) OUTPATIENT [id number] [facility] HOLLI Hummel 12/29 Released w/o Limitations Chayo PAULINO [place]) [place] PA[place] Immuniz[place] ions) OUTPATIENT [id number] Patient here for TERRIE RODRIGUEZ 12/29 Released w/o Limitations [facility] [place] Immun[place] ations) [facility] Mai [place], JOSE LUIS([place] [employer] Pre [employer] Post Deploymen t) OUTPATIENT [id number] Notes Entered by: SUNSHINE VALADEZ 02 Jan 2012 1236 ------- ------- ------- ------- -- ELVA PRECIOUSCHELSEY DAPHNE KIDD 01/01 Released w/o Limitations JOSE LUIS Tamez([facility] Pre & Post Deploym ent) [place] PA[place] JOSE LUIS([facility] Hearing Conservat ion) OUTPATIENT [id number] Notes Entered by: DEONTE FORD 05 Jan 2012 1157 ------- ------- ------- ------- -- ELVA DESHPANDE ALEXYS FREEDMAN 01/04 Released w/o Limitations [facility] [place], JOSE LUIS([facility] Hearing Conserv ation) Procedures Combined list of: 1) Procedures from Department of Veterans Affairs facilities [facility], not all VA non-surgical procedures are included; 2) All procedures from the Department of Defense facilities. Procedure Procedure Type Code Date Perfomer Comments [facility] e ELECTROCARDIOGRAM, ROUTINE ECG WITH AT LEAST 12 LEADS; INTERPRETATION AND REPORT ONLY 3 [facility] ELECTROCARDIOGRAM, ROUTINE ECG WITH AT LEAST 12 LEADS; TRACING ONLY, WITHOUT INTERPRETATION AND REPORT 3 DoD VIS FUNCT SCREEN,AUTOMAT/SEMI-A UTOMAT BILAT QUANT DETERM VISUAL ACUITY,OCULAR ALIGN,COLOR VISION,PSEUDOISOCHROM AT PLATES,& FIELD VIS (MAY INC ALL/SOME SCRN DETERM FOR CONTRAST SENSITIV,VIS UND GLARE) 3 [facility] DETERMINATION OF REFRACTIVE STATE 5 [facility] ELECTROCARDIOGRAM, ROUTINE ECG WITH AT LEAST 12 LEADS; WITH INTERPRETATION AND REPORT 5 DoD PURE TONE AUDIOMETRY (THRESHOLD); AIR ONLY 5 [facility] ELECTROCARDIOGRAM, ROUTINE ECG WITH AT LEAST 12 LEADS; TRACING ONLY, WITHOUT INTERPRETATION AND REPORT 7 [facility] INFLUENZA VIRUS VACCINE, TRIVALENT (IIV3), SPLIT VIRUS, 0.5 ML DOSAGE, FOR INTRAMUSCULAR USE 6 DoD EAR MOLD/INSERT, NOT DISPOSABLE, ANY TYPE 6 DoD VIS FUNCT SCREEN,AUTOMAT/SEMI-A UTOMAT BILAT QUANT DETERM VISUAL ACUITY,OCULAR ALIGN,COLOR VISION,PSEUDOISOCHROM AT PLATES,& FIELD VIS (MAY INC ALL/SOME SCRN DETERM FOR CONTRAST SENSITIV,VIS UND GLARE) 6 DoD AUDIOMETRIC TESTING OF GROUPS 6 [facility] DETERMINATION OF REFRACTIVE STATE 6 [facility] PURE TONE AUDIOMETRY (THRESHOLD); AIR ONLY 2 [facility] SCREENING TEST OF VISUAL ACUITY, QUANTITATIVE, BILATERAL 2 [facility] INFLUENZA VIRUS VACCINE, TRIVALENT, LIVE (LAIV3), FOR INTRANASAL USE 1 [facility] SCREENING TEST OF VISUAL ACUITY, QUANTITATIVE, BILATERAL 1 [facility] OPHTHALMOLOGICAL SERVICES: MEDICAL EXAMINATION AND EVALUATION WITH INITIATION OF DIAGNOSTIC AND TREATMENT PROGRAM; COMPREHENSIVE, NEW PATIENT, 1 OR MORE VISITS 2 [facility] Threshold Audiogram (Pure Tone) Threshold Audiogram (Pure Tone) 55755 2 ALEXYS FREEDMAN [facility] Screening Test Of Visual Acuity, Quantitative, Bilateral Screening Test Of Visual Acuity, Quantitative, Bilateral 11019 2 HOLLI BYRNE [facility] Ophthalmological New Patient Start Comprehensive Care Ophthalmological New Patient Start Comprehensive Care [id number] JARRELL GALEANO [facility] ECG Performance of Tracing Only ECG Performance of Tracing Only 70555 7 CANDIDA WALTERS [facility] Visual Function Screening Visual Function Screening 24811 7 CANDIDA WALTERS [facility] Influenza Split Virus Vaccine 0.5mL Dosage Intramuscular 6 ELAINE NAPIER Immunization Administration By Injection, One Vaccine Immunization Administration By Injection, One Vaccine 61112 6 YOHUBERT, ELAINE [facility] Audiogram (Screening) Audiogram (Screening) 38334 6 NICOLE MCCRAY [facility] Audiometry Group Testing Audiometry Group Testing 08862 6 NICOLE MCCRAY [facility] Ear mold/insert, not disposable, any type 6 ARTHUR BURTON [facility] Audiogram (Screening) Audiogram (Screening) 13435 6 WILMA MCKEE [facility] Visual Function Screening Visual Function Screening 41968 6 WILMA MCKEE Determination Of Refractive State Determination Of Refractive State 16172 6 ERNESTO JOY [facility] Social History Combined list of available smoking, tobacco, and other social history from Department of Defense and Veterans Affairs facilities. Social History Type Response Date Comment [facility] e This section is an empty social history section. DoD
--- NOTE | 2024-02-20 12:23 | ED_ITS ---
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 He says it knocked the wind out of him and since then he has had pain in both sides of his rib cage particularly eating when he goes from sitting down to pushing himself up into a standing position, lying flat is also painful. It hurts to twist [id number] and hurts to take a deep breath although he has not felt short of breath. He specifically denies any midline back pain. No head or neck injury. Was seen at an urgent care the next day and had a chest x-ray which was normal, but they spoke with a friend who recommended that they come into the ER for CT scan. 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 Worked yesterday with some difficulty, is supposed to work again tomorrow evening. Related Data Home Medications ?Medication ?Instructions ?Recorded ?Confirmed Fish oil 1,000 mg PO .QD 05/03/23 12/29/23 calcium carbonate 500 mg PO BID 05/03/23 12/29/23 cinnamon bark 500 mg capsule 500 mg PO BID 05/03/23 12/29/23 multivitamin (Multiple Vitamins 1 tab PO QDAY 05/03/23 12/29/23 tablet) vitamin A-vitamin C-vit E-min 1 tab PO QDAY 05/03/23 12/29/23 tablet Previous Rx's ?Medication ?Instructions ?Recorded oxycodone 5 mg tablet 5 mg PO Q6H PRN pain #7 tabs 02/20/24 Allergies Allergy/AdvReac Type Severity Reaction Status Date / Time No Known Drug Allergies Allergy Verified 02/20/24 09:53 Review of Systems Status of ROS: Reports: 6 or more systems reviewed and unremarkable except as noted in History and below [facility] Medical History Vitreous floaters ?H43.399 - Other vitreous opacities, unspecified eye (ICD-10) GERD (gastroesophageal reflux disease) ?K21.9 - Gastro-esophageal reflux disease without esophagitis (ICD-10) Suppurative lymphadenitis ?L04.9 - Acute lymphadenitis, unspecified (ICD-10) Surgical History Sebaceous cyst ?L72.3 - Sebaceous cyst (ICD-10) History of laparoscopic appendectomy (04/16/20) ?Z90.49 - Acquired absence of other specified parts of digestive tract (ICD- 10) Family History Paternal Grandmother Myocardial infarction Paternal Grandfather Myocardial infarction, Onset Age: 50 Maternal Grandmother Diabetes Social History What is your current living situation?: I presently have a place to live Problems where you live: no known problems In the past 12 months, utilities in danger of being shut off: no In past 12 months, lack of transportation kept you from medical appts, meetings, work, or getting things needed for daily living: no In the past 12 mos, have been you worried that your food would run out before you had money to buy more?: never true In the past 12 mos, the food you bought just didn't last and you didn't have money to buy more?: never true Smoking Status: Never smoker Do you use any of these nicotine containing products: None How often do you have a drink containing alcohol: never How often do you have six or more drinks on one occasion: Never AUDIT-C Alcohol total score: 0 Non-prescribed substance use: denies use How often does anyone, including family, friends and others, physically hurt you : never How often does anyone, including family, friends and others, insult or talk down to you: never How often does anyone, including family, friends and others, threaten you with harm: never How often does anyone, including family, friends and others, scream or curse at you: never Little interest or pleasure in doing things: not at all Feeling down, depressed, or hopeless: not at all Exam Narrative: Exam Narrative: Vital signs as noted above. In general, an alert, well-appearing patient. Breathing easily. Head: Normocephalic, atraumatic. Eyes: Pupils are equal reactive. Extraocular movements are full. Conjunctivae are normal. ENT: Mucous membranes are moist. Throat is normal. Neck: Supple without lymphadenopathy. Heart: Regular rate and rhythm. No murmur or rub. Lungs: Clear bilaterally. No increased work of breathing, crackles or wheezes. He has mild tenderness of the lateral ribcages bilaterally on the lower aspect of the ribcage. He does not have any obvious bruising, swelling or deformity. No crepitus or subcu air. Abdomen: Soft and nontender to palpation. Back: Atraumatic in appearance. Nontender to palpation Extremities: Well perfused. No edema. No calf tenderness. Pulses intact. Neurologic: Patient is alert and oriented to person and place. Speech is fluent. Face is symmetric. Moves all extremities equally. Affect: Normal. Skin: Warm and dry. Well perfused. Const: Vital Signs, click to edit/add: Vital Signs - 24 hr 02/20/24 09:50 Temperature 98.6 F Pulse Rate [Pulse Oximeter] 76 Respiratory Rate 18 Blood Pressure [Ri ght Upper Arm] 151/102 H Pulse Oximetry 100 Oxygen Delivery Me thod Room Air Documenting provider has reviewed patient's vital signs: yes Course Course ED Course: He declined anything for pain at this time secondary to regulations for his job. He did have a CT scan of the chest without contrast. Radiology report as linked below shows a healing fracture of the right 6th posterior rib. I have reviewed his CT scan as well, and there is a fair amount of callus in that area, I do not think this is consistent with a fracture that just happened a couple of days ago. I talked to him about this, he did have a slip and fall a couple of months ago that perhaps accounts for this area. Reviewed with him that there is no evidence of acute rib fractures although perhaps he aggravated this old 1. Also possible that this is muscular, in the absence of any midline back pain at all or any findings on CT I am less suspicious of a radiculopathy for him. He can certainly continue to take ibuprofen and/or Tylenol, did discuss that might be reasonable to take a couple of days off of work given that he has to do a fair amount of physical work just to rest his chest wall. I prescribed oxycodone to his pharmacy if he ends up decided to take some time off of work and needs something else for pain, otherwise continue with [id number]-[id number] medications, ice, relative rest. Return any time for acute new symptoms such as difficulty breathing, fevers, cough etcetera. See primary care as needed if not improving over the next couple of weeks. Vital Signs Vital signs: Initial Vital Signs Temperature 98.6 F 02/20/24 09:50 Temperature Source Temporal Artery Scan 02/20/24 09:50 Pulse Rate 76 02/20/24 09:50 Pulse Rhythm Regular 02/20/24 09:50 Respiratory Rate 18 02/20/24 09:50 Blood Pressure 151/102 H 02/20/24 09:50 Blood Pressure Mean 118 H 02/20/24 09:50 Blood Pressure Position Sitting 02/20/24 09:50 Pulse Oximetry 100 02/20/24 09:50 Oxygen Delivery Method Room Air 02/20/24 09:50 Vital Signs Temperature 98.6 F 02/20/24 09:50 Pulse Rate 76 02/20/24 09:50 Respiratory Rate 18 02/20/24 09:50 Blood Pressure 151/102 H 02/20/24 09:50 Pulse Oximetry 100 02/20/24 09:50 Oxygen Delivery Method Room Air 02/20/24 09:50 Temperature 98.6 F 02/20/24 09:50 Pulse Rate 76 02/20/24 09:50 Respiratory Rate 18 02/20/24 09:50 Blood Pressure 151/102 H 02/20/24 09:50 Pulse Oximetry 100 02/20/24 09:50 Oxygen Delivery Method Room Air 02/20/24 09:50 Medical Decision Making Imaging Data CT scan - chest: Radiologist's impression: Patient: LUPE WEINBERG Facility: [facility] Site . Site : 1980 Study: CT-Chest WITHOUT-02/20/2024 10:42:46 AM Ordering Physician: Vickie Mcleod Final Report: INDICATION: Fall 2 days ago TECHNIQUE: CT chest without contrast. COMPARISON: None. FINDINGS: Lungs and pleura: No pleural effusion or pneumothorax. Scattered minimal dependent atelectasis, most pronounced into the right lower lobe. No suspicious lung mass or nodule. Heart and vasculature: Heart size is normal. Thoracic aorta and pulmonary artery are normal in caliber. No pericardial effusion. Lymph nodes. No concerning mediastinal or axillary lymphadenopathy by size criteria. Limited assessment for the hilar lymph nodes on noncontrast exam. Few calcified mediastinal and right hilar lymph nodes. Upper abdomen: No significant findings. Bones: Thoracic vertebral body height and alignment is maintained without concerning bony lesion. No acute vertebral wedging compression fracture. Schmorl`s node along the superior endplate of T6. Healing right 6th rib fracture posteriorly. IMPRESSION: Healing fracture of right 6th rib posteriorly. Scattered minimal dependent atelectasis; otherwise, no acute traumatic injury. Please note that all CT scans at this facility use dose modulation, iterative r econstruction, and/or weight-based dosing when appropriate to reduce radiation dose to as low as reasonably achievable. Discharge Plan Discharge Clinical Impression: Acute chest wall pain, Fracture of one rib with routine healing Patient Disposition: Home, Self-Care Condition: Stable Instructions: Chest Wall Pain (ED) Additional Instructions: Ibuprofen 400 mg plus Tylenol 1000 mg 3 times daily as needed with food. I prescribed oxycodone that you can fill if you decide to take off of work. For worsening symptoms, shortness of breath, fevers, etcetera return to the ER. Otherwise see your primary doctor as needed for persistent symptoms. Consider a few days off of work, relative rest. Prescriptions: New oxycodone 5 mg tablet 5 mg PO Q6H PRN (Reason: pain) Qty: 7 0RF No Action cinnamon bark 500 mg capsule 500 mg PO BID calcium carbonate 500 mg calcium (1,250 mg) tablet 500 mg PO BID multivitamin [Multiple Vitamins] Tablet 1 tab PO QDAY Fish oil 1,000 mg PO .QD vitamin A-vitamin C-vit E-min Tablet 1 tab PO QDAY Follow Up/Referrals: Freddie Townsend MD [Primary Care Provider] - Stand Alone Forms: [email or web address] Info Instructions
== END 2024-02-20 11:33 | disposition home or self-care (01) ==
PROVIDERS: Emergency Provider Emergency Medicine; PCP Family Medicine
DX: S22.31XA Fracture of one rib, right side, initial encounter for closed fracture (principal); W00.9XXA Unspecified fall due to ice and snow, initial encounter; Y93.22 Activity, ice hockey
CPT/HCPCS: 71250; 99284

== ENCOUNTER 2024-08-16 15:12 | Outpatient (CLI) | payer OTHER, SELFPAY ==
--- NOTE | 2024-08-16 15:30 | CRLHL7_ITS ---
For Patients: As a result of the Century Cures Act, medical imaging exams and procedure reports are released immediately into your electronic medical record. You may view this report before your referring provider. If you have questions, please contact your health care provider. INDICATION: Bilateral tinnitus TECHNIQUE: Non-contrast sagittal T1, axial FLAIR, FSE T2, DWI, posterior fossa CISS images provided. Supplemental post contrast T1 weighted axial and coronal high resolution images through the posterior fossa with fat saturation and post contrast whole head axial T1 weighted images submitted. No comparisons. 20 cc of Dotarem was administered intravenously. FINDINGS: The ventricles, sulci and gyri are of normal size, shape and contour for age. Midline structures are centrally located. No convincing evidence of suspicious intra- or extra-axial fluid collections. No regions of restricted diffusion. Expected flow-voids within the cavernous carotids and basilar artery. No suspicious masses within the internal auditory canals. No suspicious regions of abnormal parenchymal enhancement. Miniscule scattered foci of increased T2 signal within the supratentorial white matter that are non-specific. IMPRESSION: 1. No radiographic evidence of acute intracranial abnormalities. 2. Miniscule scattered supratentorial white matter change that is non-specific. Differential considerations include changes related to diabetes, hypertension, collagen vascular disease or migranous headaches. Dictated by Boris Barnett MD @ 08/16/2024 7:16:42 PM (Electronically Signed)
== END 2024-08-16 15:13 | disposition home or self-care (01) ==
LOC: MRI 15:13
PROVIDERS: PCP Family Medicine; Visit Provider Family Medicine
DX: H93.13 Tinnitus, bilateral (principal)
CPT/HCPCS: 70553; A9575

== ENCOUNTER 2024-09-11 10:33 | Outpatient (CLI) | payer OTHER, SELFPAY | END 2024-09-11 10:34 | disposition home or self-care (01) | PROVIDERS: PCP Family Medicine; Visit Provider Otolaryngology | DX: H93.13 Tinnitus, bilateral (principal); Z11.8 Encounter for screening for other infectious and parasitic diseases; Z13.29 Encounter for screening for other suspected endocrine disorder | CPT/HCPCS: 84443; 86038; 86431; 86618 ==

== ENCOUNTER 2025-02-25 09:12 | Outpatient (CLI) | payer OTHER, SELFPAY | END 2025-02-25 09:13 | disposition home or self-care (01) | LOC: NFLDREF 03-01 16:22 | PROVIDERS: PCP Family Medicine; Referring Provider Family Medicine; Visit Provider Family Medicine | DX: E66.09 Other obesity due to excess calories (principal); Z13.228 Encounter for screening for other metabolic disorders | CPT/HCPCS: 80048; 80061 ==

== ENCOUNTER 2025-04-15 21:12 | Outpatient (CLI) | payer OTHER, SELFPAY | END 2025-04-15 21:13 | disposition home or self-care (01) | LOC: SLEEP 21:13 | PROVIDERS: PCP Family Medicine; Visit Provider Internal Medicine | DX: G47.33 Obstructive sleep apnea (adult) (pediatric) (principal) | CPT/HCPCS: 95810 ==